=== PATIENT | male | born 1945 | race Caucasian/White ===

== ENCOUNTER 2018-11-06 14:09 | Inpatient (IN) ==
[2018-11-06] MEDS ORDERED: MoRPHine SULFATE 4 MG/ML 1 ML CARP\\VIAL IV PRN ×2 (16:33→20:38)
[2018-11-06] MEDS ORDERED: ONDANSETRON INJ 2 MG/ML 2 ML VIAL IV STA (16:33)
[2018-11-06] MEDS ORDERED: SODIUM CHLORIDE 0.9% 1000ML 1,000 ML IV SCH (16:45)
[2018-11-06 16:58] LABS: Basophils # (auto) 0.01 K/uL (0-0.2); Basophils % (auto) 0.1 %; Hematocrit (blood only) 44.6 % (42-52); Hemoglobin 15.1 g/dL (14.0-18.0); Immature Granulocytes # (auto) 0.15 K/uL (0.00-0.02); Lymphocytes # (auto) 0.19 K/uL (1.2-3.4); Lymphocytes % (auto) 1.3 %; Mean Corpuscular Hgb Conc 33.9 g/dL (32-36); Mean Corpuscular Volume 92.7 fL (80-100); Mean Platelet Volume 9.5 fL (7.4-10.4); Monocytes # (auto) 0.58 K/uL (0.11-0.59); Monocytes % (auto) 3.9 %; Neutrophils % (auto) 93.7 %; Platelet Count 197 K/uL (130-400); RDW Coefficient of Variation 13.2 % (11.5-14.5); RDW Standard Deviation 45.4 fL (36.4-46.3); Red Blood Count 4.81 M/uL (4.7-6.1); White Blood Count 14.93 K/uL (4.8-10.8)
--- NOTE | 2018-11-06 17:00 | XRay Report ---
XR chest 1V portable HISTORY: 73 years-old Male abd pain acute generalized abdominal pain with acute atypical chest pain COMPARISON: None available TECHNIQUE: Portable AP view of the chest FINDINGS: Cardiac silhouette is upper limits of normal in size. Mediastinal contours are within normal limits. There is no pneumothorax. Mild blunting of the costophrenic angles with mild right hemidiaphragm elev ation and subsegmental bibasilar opacities. Mild interstitial coarsening, likely on a chronic basis. Degenerative changes of the shoulders and spine. Convex right curvature about the midthoracic spine. IMPRESSION: 1. Left greater than right bibasilar opacities suggest atelectasis with pneumonitis considered less l ikely. 2. Mild right hemidiaphragmatic elevation. The above report was generated using voice recognition software. It may contain grammatical, syntax o r spelling errors. Electronically signed by: Terence David M.D. 11/06/2018 4:58 PM
[2018-11-06 17:06] LABS: iSTAT Hemoglobin 15.6 g/dl (14.0-18.0); iSTAT Ionized Calcium 1.18 mmol/l (1.12-1.32)
[2018-11-06 17:10] LABS: Prothrombin Time 10.3 Seconds (9.0-12.0)
--- NOTE | 2018-11-06 17:17 | Emergency Department Note ---
Entered by Jerry Allison acting as a scribe for Chris Tariq DO History of Present Illness General Chief complaint: Abdominal Pain Source: patient Limitations: no limitations History of Present Illness Provider complaint: Abd Pain Onset (ago): day(s) Location: abdomen Radiation: other (radiating around the abdomen) Pain Consistency: + constant Maximum Pain Intensity: 7 Associated symptoms: + shortness of breath and + other (No melena, no hematochezia); no chest pain Treatments prior to arrival: none The patient is a 73 year old male who presents to the Emergency Room with complaints of constant abdominal pain that began a "couple of days ago." The patient describes his pain as diffuse and migrating around his abdomen. He also complains of some "heavy breathing" but denies any chest pain. The patient has history of medical issues aside from two hernia repairs. Home Medications Home Medications Medication Instructions Recorded Confirmed Type acetaminophen [Tylenol Extra 1,000 mg PO UD PRN 11/06/18 11/06/18 History Strength] aspirin 81 mg PO QAM 11/06/18 11/06/18 History Allergies Allergy/AdvReac Type Severity Reaction Status Date / Time No Known Allergies Allergy Unverified 11/06/18 17:30 Past Med/Surg History Medical History BPH (benign prostatic hyperplasia) Hydrocele HLD (hyperlipidemia) History of actinic keratosis Hx of melanoma of skin History of basal cell carcinoma Surgical History History of colonoscopy with polypectomy History of lymph node biopsy History of tonsillectomy and adenoidectomy History of surgical removal of skin lesion History of hernia repair Family History Father , age 61 of [place] HTN (hypertension) CVA (cerebral vascular accident) Heart attack Social History Current Living Situation: Alone Other Information That Helps Us Care for You: No Feels Safe at Home: Yes Safety Concerns: Feels Safe At This Time Smoking Status: Never smoker Tobacco Type: smokeless tobacco Cigarettes per Day : 1/2 can per day Do You Dip or Chew Tobacco: Yes Hx Alcohol Use: No Hx Substance Use: No Beliefs That Will Affect Care: None Communication Ability: Effective Review of Systems See HPI for pertinent positives & negatives. and A total of 10 systems reviewed and were otherwise negative Physical Exam Vital Signs Vital Signs - 24 hr 11/06/18 14:30 11/06/18 16:15 11/06/18 16:31 Temperature 36.4 C L Temperature Source Oral Sepsis Recent Fever Within 48 Hours No Sepsis New/Unexplained Change in Mental Status No Sepsis Action Taken by Nursing No Action Required Pulse Rate 98 H 105 H Pulse Rate [Apical] 94 H Pulse Rhythm Pulse Rhythm [Apical] Pulse Strength [Apical] Respiratory Rate 18 18 32 H Respiratory Effort / Characteristics Non-Labored Spontaneous Respiratory Depth Normal Respiratory Pattern Regular Blood Pressure 105/69 102/91 Blood Pressure [Right Arm] 137/77 Blood Pressure Mean 81 94 Blood Pressure Mean [Right Arm] 97 Blood Pressure Position [Right Arm] Pulse Oximetry 98 94 97 Oxygen Delivery Method Room Air Room Air Oxygen Flow Rate 11/06/18 16:44 11/06/18 18:31 11/06/18 19:07 Temperature Temperature Source Sepsis Recent Fever Within 48 Hours Sepsis New/Unexplained Change in Mental Status Sepsis Action Taken by Nursing Pulse Rate 98 H 116 H 122 H Pulse Rate [Apical] Pulse Rhythm Regular Pulse Rhythm [Apical] Pulse Strength [Apical] Respiratory Rate 18 21 18 Respiratory Effort / Characteristics Respiratory Depth Respiratory Pattern Blood Pressure 109/84 96/85 L Blood Pressure [Right Arm] Blood Pressure Mean 92 88 Blood Pressure Mean [Right Arm] Blood Pressure Position [Right Arm] Pulse Oximetry 94 91 90 Oxygen Delivery Method Room Air Oxygen Flow Rate 11/06/18 19:31 11/06/18 20:15 11/06/18 20:30 Temperature 36.9 C Temperature Source Oral Sepsis Recent Fever Within 48 Hours Sepsis New/Unexplained Change in Mental Status Sepsis Action Taken by Nursing Pulse Rate 115 H 115 H Pulse Rate [Apical] 112 H Pulse Rhythm Pulse Rhythm [Apical] Regular Pulse Strength [Apical] Normal Respiratory Rate 21 21 20 Respiratory Effort / Characteristics Non-Labored Spontaneous Respiratory Depth Normal Respiratory Pattern Regular Blood Pressure 126/77 126/77 Blood Pressure [Right Arm] 127/74 Blood Pressure Mean 93 Blood Pressure Mean [Right Arm] 91 Blood Pressure Position [Right Arm] Lying Pulse Oximetry 91 91 95 Oxygen Delivery Method Room Air Room Air Oxygen Flow Rate 11/06/18 23:40 11/06/18 23:50 11/07/18 00:00 Temperature 37.2 C Temperature Source Temporal Artery Scan Temporal Artery Scan Sepsis Recent Fever Within 48 Hours Sepsis New/Unexplained Change in Mental Status Sepsis Action Taken by Nursing Pulse Rate Pulse Rate [Apical] 82 69 76 Pulse Rhythm Pulse Rhythm [Apical] Regular Regular Regular Pulse Strength [Apical] Respiratory Rate 18 19 16 Respiratory Effort / Characteristics Non-Labored Spontaneous Non-Labored Spontaneous Non-Labored Spontaneous Respiratory Depth Normal Normal Normal Respiratory Pattern Blood Pressure Blood Pressure [Right Arm] 134/80 117/71 142/98 H Blood Pressure Mean Blood Pressure Mean [Right Arm] 98 86 112 Blood Pressure Position [Right Arm] Semi-fowlers Semi-fowlers Semi-fowlers Pulse Oximetry 98 96 96 Oxygen Delivery Method Oxymask Oxymask Oxymask Oxygen Flow Rate 6 6 6 11/07/18 00:10 11/07/18 00:37 11/07/18 00:50 Temperature 37.1 C 36.5 C Temperature Source Temporal Artery Scan Oral Sepsis Recent Fever Within 48 Hours Sepsis New/Unexplained Change in Mental Status Sepsis Action Taken by Nursing Pulse Rate Pulse Rate [Apical] 76 77 76 Pulse Rhythm Pulse Rhythm [Apical] Regular Regular Regular Pulse Strength [Apical] Normal Normal Respiratory Rate 15 20 20 Respiratory Effort / Characteristics Non-Labored Spontaneous Non-Labored Spontaneous Non-Labored Spontaneous Respiratory Depth Normal Normal Normal Respiratory Pattern Regular Regular Blood Pressure Blood Pressure [Right Arm] 110/72 130/76 115/72 Blood Pressure Mean Blood Pressure Mean [Right Arm] 84 94 86 Blood Pressure Position [Right Arm] Semi-fowlers Lying Lying Pulse Oximetry 93 92 95 Oxygen Delivery Method Nasal Cannula Nasal Cannula Nasal Cannula Oxygen Flow Rate 2 2 2 11/07/18 01:25 11/07/18 01:40 11/07/18 02:11 Temperature Temperature Source Sepsis Recent Fever Within 48 Hours Sepsis New/Unexplained Change in Mental Status Sepsis Action Taken by Nursing Pulse Rate Pulse Rate [Apical] 74 75 75 Pulse Rhythm Pulse Rhythm [Apical] Regular Regular Regular Pulse Strength [Apical] Normal Normal Normal Respiratory Rate 18 20 16 Respiratory Effort / Characteristics Non-Labored Spontaneous Non-Labored Spontaneous Non-Labored Spontaneous Respiratory Depth Normal Normal Normal Respiratory Pattern Regular Blood Pressure Blood Pressure [Right Arm] 107/69 110/70 97/57 L Blood Pressure Mean Blood Pressure Mean [Right Arm] 81 83 70 Blood Pressure Position [Right Arm] Lying Lying Lying Pulse Oximetry 94 94 94 Oxygen Delivery Method Room Air Room Air Room Air Oxygen Flow Rate 11/07/18 02:40 11/07/18 03:10 11/07/18 04:10 Temperature 36.7 C Temperature Source Oral Sepsis Recent Fever Within 48 Hours Sepsis New/Unexplained Change in Mental Status Sepsis Action Taken by Nursing Pulse Rate Pulse Rate [Apical] 71 87 60 Pulse Rhythm Pulse Rhythm [Apical] Regular Regular Regular Pulse Strength [Apical] Normal Normal Respiratory Rate 18 18 18 Respiratory Effort / Characteristics Non-Labored Spontaneous Non-Labored Spontaneous Non-Labored Spontaneous Respiratory Depth Normal Normal Normal Respiratory Pattern Regular Regular Regular Blood Pressure Blood Pressure [Right Arm] 97/63 L 101/62 89/53 L Blood Pressure Mean Blood Pressure Mean [Right Arm] 74 75 65 Blood Pressure Position [Right Arm] Lying Lying Lying Pulse Oximetry 92 92 94 Oxygen Delivery Method Room Air Room Air Oxygen Flow Rate 11/07/18 05:10 11/07/18 06:10 11/07/18 06:43 Temperature 36.4 C L Temperature Source Oral Sepsis Recent Fever Within 48 Hours Sepsis New/Unexplained Change in Mental Status Sepsis Action Taken by Nursing Pulse Rate Pulse Rate [Apical] 60 56 L 57 L Pulse Rhythm Pulse Rhythm [Apical] Regular Pulse Strength [Apical] Normal Respiratory Rate 20 18 16 Respiratory Effort / Characteristics Non-Labored Spontaneous Non-Labored Spontaneous Respiratory Depth Normal Normal Respiratory Pattern Regular Blood Pressure Blood Pressure [Right Arm] 98/64 L 94/57 L 110/70 Blood Pressure Mean Blood Pressure Mean [Right Arm] 75 69 83 Blood Pressure Position [Right Arm] Lying Lying Lying Pulse Oximetry 94 95 95 Oxygen Delivery Method Room Air Room Air Room Air Oxygen Flow Rate 11/07/18 07:01 11/07/18 10:46 Temperature 36.6 C 36.5 C Temperature Source Oral Oral Sepsis Recent Fever Within 48 Hours Sepsis New/Unexplained Change in Mental Status Sepsis Action Taken by Nursing Pulse Rate Pulse Rate [Apical] 68 67 Pulse Rhythm Pulse Rhythm [Apical] Pulse Strength [Apical] Respiratory Rate 18 18 Respiratory Effort / Characteristics Respiratory Depth Respiratory Pattern Blood Pressure Blood Pressure [Right Arm] 111/69 117/72 Blood Pressure Mean Blood Pressure Mean [Right Arm] 83 87 Blood Pressure Position [Right Arm] Lying Lying Pulse Oximetry 95 95 Oxygen Delivery Method Room Air Room Air Oxygen Flow Rate GENERAL: Patient is frail and cachectic appearing. He appears anxious and uncomfortable. EYES: The conjunctivae are clear. The pupils are round and reactive. EARS, NOSE, MOUTH AND THROAT: The nose is without any evidence of any deformity. Mucous membranes are moist tongue is midline NECK: The neck is nontender and supple. RESPIRATORY: Normal respiratory effort is noted there is no evidence of wheezing rhonchi or rales CARDIOVASCULAR: Regular rate and rhythm noted there no murmurs rubs or gallops normal S1 normal S2 GASTROINTESTINAL: The abdomen is nondistended but diffusely tender. There is diffuse guarding noted to palpation. MUSCULOSKELETAL/EXTREMITIES: There is no evidence of gross deformity full range of motion is noted in the hips and shoulders SKIN: There is no obvious evidence of any rash. No pedal edema was noted NEUROLOGIC: Patient is awake alert and oriented x3. Course 1628: Past medical records reviewed. The patient was evaluated in room B4A, and a complete history and physical examination were performed. 1827: I reviewed the patient's case with Lupe Rowland Lenin SKAGGS. She will evaluate the patient for further management. 1836: I reviewed the patient's case with Dr. Daniel LEE. He would like me to order a MRCP and admit to medicine. Consultations Consultation #1: 1827: I reviewed the patient's case with Lupe Rowland Lenin SKAGGS. She will evaluate the patient for further management. Administered Medications Piperacillin Sod/Tazobactam (Sod 3.375 gm/ Dextrose) 115 mls @ 28.75 mls/hr IV [facility]; Protocol Stop: 11/17/18 00:00 Last Infusion: 11/07/18 12:56 Dose: 0 mls/hr Admin: 11/07/18 08:09 Dose: 28.8 mls/hr Infusion: 11/07/18 04:52 Dose: 0 mls/hr Admin: 11/07/18 00:45 Dose: 28.8 mls/hr Discontinued Medications Sodium Chloride (Nss 1000ml) 1,000 mls @ 999 mls/hr IV .Q1H1M RANDA Stop: 11/06/18 17:45 Last Infusion: 11/06/18 18:05 Dose: 0 mls/hr Admin: 11/06/18 17:03 Dose: 999 mls/hr Piperacillin Sod/Tazobactam Sod (Zosyn) 4.5 gm in 120 mls @ 240 mls/hr IV NOW ONE Stop: 11/06/18 18:57 Last Infusion: 11/06/18 20:25 Dose: 0 mls/hr Admin: 11/06/18 19:31 Dose: 240 mls/hr Sodium Chloride (Nss) 500 mls @ 999 mls/hr IV .Q31M ONE Stop: 11/06/18 18:58 Last Infusion: 11/06/18 20:25 Dose: 0 mls/hr Admin: 11/06/18 19:32 Dose: 999 mls/hr Sodium Chloride (Nss 1000ml) 1,000 mls @ 999 mls/hr IV .Q1H1M ONE Stop: 11/06/18 21:45 Last Admin: 11/06/18 21:03 Dose: Not Given Sodium Chloride (Nss 1000ml) 1,000 mls @ 125 mls/hr IV .Q8H RANDA Stop: 11/07/18 13:44 Last Admin: 11/07/18 08:09 Dose: 125 mls/hr Infusion: 11/07/18 08:09 Dose: 125 mls/hr Admin: 11/07/18 00:45 Dose: 125 mls/hr Indomethacin (Indocin) 100 mg IN NOW STA Stop: 11/06/18 20:32 Last Admin: 11/06/18 21:03 Dose: 100 mg Indomethacin (Indocin) Confirm Administered Dose 100 mg IN .STK-MED ONE Stop: 11/06/18 22:36 Last Admin: 11/06/18 23:10 Dose: 100 mg Ioversol (Optiray 320 100ml) 94 ml IV ONCE PRN PRN Reason: Interaction Checking Stop: 11/10/18 17:44 Last Admin: 11/06/18 17:45 Dose: 94 ml Morphine Sulfate (Morphine Sulfate) 4 mg IV Q15M PRN PRN Reason: Pain Stop: 11/20/18 16:32 Last Admin: 11/06/18 17:03 Dose: 4 mg Ondansetron HCl (Zofran) 4 mg IV NOW STA Stop: 11/06/18 16:34 Last Admin: 11/06/18 17:03 Dose: 4 mg Medical Decision Making Differential Diagnosis Differential diagnosis: Etiologies such as biliary colic, cholecystitis, hepatitis, pancreatitis, cardiac disease, pancreatitis, gastritis, peptic ulcer disease, appendicitis, cystitis, diverticulitis, mesenteric ischemia, inflammatory bowel disease, ileus , bowel obstruction, testicular torsion, aortic pathology, shingles, as well as others were considered. Medical Records Attestation: I reviewed the patient's medical records. Home Medications Current Medication List: was personally reviewed by me Laboratory Data Attestation: I reviewed the patient's lab results. Result diagrams: 11/07/18 07:12 11/07/18 07:12 Lab Results 11/06/18 11/06/18 11/06/18 Range/Units 16:44 16:44 16:44 WBC 14.93 H (4.8-10.8) K/uL RBC 4.81 (4.7-6.1) M/uL Hgb 15.1 (14.0-18.0) g/dL POC Hgb (14.0-18.0) g/dl Hct 44.6 (42-52) % POC Hct (42-52) % MCV 92.7 (80-100) fL MCH 31.4 (25-34) pg MCHC 33.9 (32-36) g/dL RDW Std Deviation 45.4 (36.4-46.3) fL RDW Coeff of Kevin 13.2 (11.5-14.5) % Plt Count 197 (130-400) K/uL MPV 9.5 (7.4-10.4) fL Immature Gran % (Auto) 1.0 % Neut % (Auto) 93.7 % Lymph % (Auto) 1.3 % [place] % (Auto) 3.9 % Eos % (Auto) 0.0 % Baso % (Auto) 0.1 % Immature Gran # (Auto) 0.15 H (0.00-0.02) K/uL Neut # (Auto) 14.00 H (1.4-6.5) K/uL Lymph # (Auto) 0.19 L (1.2-3.4) K/uL [place] # (Auto) 0.58 (0.11-0.59) K/uL Eos # (Auto) 0.00 (0-0.5) K/uL Baso # (Auto) 0.01 (0-0.2) K/uL Echinocytes PT 10.3 (9.0-12.0) Seconds INR 1.0 (0.9-1.1) POC Sodium (135-144) mEq/L Sodium 134 L (136-145) mmol/L POC Potassium (3.3-5.0) mEq/L Potassium 4.7 (3.5-5.1) mmol/L POC Chloride (101-112) mEq/L Chloride 100 (98-107) mmol/L Carbon Dioxide 22 (21-32) mmol/L POC Total CO2 (24-31) mEq/l Anion Gap 12.0 H (3-11) POC Anion Gap (16-25) mmol/L POC BUN (7-18) mg/dl BUN 30 H (7-18) mg/dl Creatinine 1.52 H (0.6-1.4) mg/dl POC Creatinine (0.6-1.3) mg/dl Est Cr Clr Drug Dosing 34.6 ml/min Est GFR ( Amer) 51.2 Est GFR (Non-Af Amer) 44.2 BUN/Creatinine Ratio 19.9 (10-20) Glucose 158 H (70-99) mg/dl POC Glucose (other) (70-99) mg/dl Estimat Average Glucose mg/dl Hemoglobin A1c (4.5-5.6) % Lactate (0.4-2.0) mmol/L Calcium 9.8 (8.5-10.1) mg/dl POC Ioniz Calcium Radha (1.12-1.32) mmol/l Total Bilirubin 4.0 H (0.2-1) mg/dl Direct Bilirubin (0-0.2) mg/dl AST 391 H (15-37) U/L ALT 266 H (12-78) U/L Alkaline Phosphatase 218 H (45-117) U/L Troponin I < 0.015 (0-0.045) ng/ml Total Protein 7.4 (6.4-8.2) gm/dl Albumin 3.7 (3.4-5.0) gm/dl Globulin 3.7 (2.5-4.0) gm/dl Albumin/Globulin Ratio 1.0 (0.9-2) Lipase 131 (73-393) U/L Urine Color Urine Appearance (Clear) Urine pH (4.5-7.5) Ur Specific [place] (1.000-1.030) Urine Protein (Negative) Urine Glucose (UA) (Negative) Urine Ketones (Negative) Urine Blood (Negative) Urine Nitrite (Negative) Urine Bilirubin (Negative) Urine Urobilinogen (Negative) Ur Leukocyte Esterase (Negative) 11/06/18 11/06/18 11/06/18 Range/Units 16:52 18:49 19:30 WBC (4.8-10.8) K/uL RBC (4.7-6.1) M/uL Hgb (14.0-18.0) g/dL POC Hgb 15.6 (14.0-18.0) g/dl Hct (42-52) % POC Hct 46 (42-52) % MCV (80-100) fL MCH (25-34) pg MCHC (32-36) g/dL RDW Std Deviation (36.4-46.3) fL RDW Coeff of Kevin (11.5-14.5) % Plt Count (130-400) K/uL MPV (7.4-10.4) fL Immature Gran % (Auto) % Neut % (Auto) % Lymph % (Auto) % [place] % (Auto) % Eos % (Auto) % Baso % (Auto) % Immature Gran # (Auto) (0.00-0.02) K/uL Neut # (Auto) (1.4-6.5) K/uL Lymph # (Auto) (1.2-3.4) K/uL [place] # (Auto) (0.11-0.59) K/uL Eos # (Auto) (0-0.5) K/uL Baso # (Auto) (0-0.2) K/uL Echinocytes PT (9.0-12.0) Seconds INR (0.9-1.1) POC Sodium 136 (135-144) mEq/L Sodium (136-145) mmol/L POC Potassium 4.9 (3.3-5.0) mEq/L Potassium (3.5-5.1) mmol/L POC Chloride 100 L (101-112) mEq/L Chloride (98-107) mmol/L Carbon Dioxide (21-32) mmol/L POC Total CO2 25 (24-31) mEq/l Anion Gap (3-11) POC Anion Gap 17.0 (16-25) mmol/L POC BUN 31 H (7-18) mg/dl BUN (7-18) mg/dl Creatinine (0.6-1.4) mg/dl POC Creatinine 1.2 (0.6-1.3) mg/dl Est Cr Clr Drug Dosing ml/min Est GFR ( Amer) Est GFR (Non-Af Amer) BUN/Creatinine Ratio (10-20) Glucose (70-99) mg/dl POC Glucose (other) 157 H (70-99) mg/dl Estimat Average Glucose mg/dl Hemoglobin A1c (4.5-5.6) % Lactate (0.4-2.0) mmol/L Calcium (8.5-10.1) mg/dl POC Ioniz Calcium Radha 1.18 (1.12-1.32) mmol/l Total Bilirubin (0.2-1) mg/dl Direct Bilirubin 3.0 H (0-0.2) mg/dl AST (15-37) U/L ALT (12-78) U/L Alkaline Phosphatase (45-117) U/L Troponin I (0-0.045) ng/ml Total Protein (6.4-8.2) gm/dl Albumin (3.4-5.0) gm/dl Globulin (2.5-4.0) gm/dl Albumin/Globulin Ratio (0.9-2) Lipase (73-393) U/L Urine Color Dark Yellow Urine Appearance Clear (Clear) Urine pH 5.0 (4.5-7.5) Ur Specific [place] > 1.045 H (1.000-1.030) Urine Protein Negative (Negative) Urine Glucose (UA) Negative (Negative) Urine Ketones Trace H (Negative) Urine Blood Negative (Negative) Urine Nitrite Negative (Negative) Urine Bilirubin Negative (Negative) Urine Urobilinogen Negative (Negative) Ur Leukocyte Esterase Negative (Negative) 11/07/18 11/07/18 11/07/18 Range/Units 07:12 07:12 07:12 WBC 14.24 H (4.8-10.8) K/uL RBC 4.08 L (4.7-6.1) M/uL Hgb 12.6 L (14.0-18.0) g/dL POC Hgb (14.0-18.0) g/dl Hct 37.3 L (42-52) % POC Hct (42-52) % MCV 91.4 (80-100) fL MCH 30.9 (25-34) pg MCHC 33.8 (32-36) g/dL RDW Std Deviation 45.2 (36.4-46.3) fL RDW Coeff of Kevin 13.5 (11.5-14.5) % Plt Count 148 (130-400) K/uL MPV 9.4 (7.4-10.4) fL Immature Gran % (Auto) 0.2 % Neut % (Auto) 93.0 % Lymph % (Auto) 4.8 % [place] % (Auto) 2.0 % Eos % (Auto) 0.0 % Baso % (Auto) 0.0 % Immature Gran # (Auto) 0.03 H (0.00-0.02) K/uL Neut # (Auto) 13.24 H (1.4-6.5) K/uL Lymph # (Auto) 0.69 L (1.2-3.4) K/uL [place] # (Auto) 0.28 (0.11-0.59) K/uL Eos # (Auto) 0.00 (0-0.5) K/uL Baso # (Auto) 0.00 (0-0.2) K/uL Echinocytes 1+ PT (9.0-12.0) Seconds INR (0.9-1.1) POC Sodium (135-144) mEq/L Sodium 137 (136-145) mmol/L POC Potassium (3.3-5.0) mEq/L Potassium 4.7 (3.5-5.1) mmol/L POC Chloride (101-112) mEq/L Chloride 107 (98-107) mmol/L Carbon Dioxide 20 L (21-32) mmol/L POC Total CO2 (24-31) mEq/l Anion Gap 10.0 (3-11) POC Anion Gap (16-25) mmol/L POC BUN (7-18) mg/dl BUN 26 H (7-18) mg/dl Creatinine 1.52 H (0.6-1.4) mg/dl POC Creatinine (0.6-1.3) mg/dl Est Cr Clr Drug Dosing 34.5 ml/min Est GFR ( Amer) 51.2 Est GFR (Non-Af Amer) 44.2 BUN/Creatinine Ratio 17.3 (10-20) Glucose 146 H (70-99) mg/dl POC Glucose (other) (70-99) mg/dl Estimat Average Glucose mg/dl Hemoglobin A1c (4.5-5.6) % Lactate 2.1 H* (0.4-2.0) mmol/L Calcium 8.0 L D (8.5-10.1) mg/dl POC Ioniz Calcium Radha (1.12-1.32) mmol/l Total Bilirubin 3.3 H (0.2-1) mg/dl Direct Bilirubin (0-0.2) mg/dl AST 170 H (15-37) U/L ALT 178 H (12-78) U/L Alkaline Phosphatase 146 H (45-117) U/L Troponin I (0-0.045) ng/ml Total Protein 5.8 L D (6.4-8.2) gm/dl Albumin 2.6 L (3.4-5.0) gm/dl Globulin 3.2 (2.5-4.0) gm/dl Albumin/Globulin Ratio 0.8 L (0.9-2) Lipase (73-393) U/L Urine Color Urine Appearance (Clear) Urine pH (4.5-7.5) Ur Specific [place] (1.000-1.030) Urine Protein (Negative) Urine Glucose (UA) (Negative) Urine Ketones (Negative) Urine Blood (Negative) Urine Nitrite (Negative) Urine Bilirubin (Negative) Urine Urobilinogen (Negative) Ur Leukocyte Esterase (Negative) 11/07/18 Range/Units 07:12 WBC (4.8-10.8) K/uL RBC (4.7-6.1) M/uL Hgb (14.0-18.0) g/dL POC Hgb (14.0-18.0) g/dl Hct (42-52) % POC Hct (42-52) % MCV (80-100) fL MCH (25-34) pg MCHC (32-36) g/dL RDW Std Deviation (36.4-46.3) fL RDW Coeff of Kevin (11.5-14.5) % Plt Count (130-400) K/uL MPV (7.4-10.4) fL Immature Gran % (Auto) % Neut % (Auto) % Lymph % (Auto) % [place] % (Auto) % Eos % (Auto) % Baso % (Auto) % Immature Gran # (Auto) (0.00-0.02) K/uL Neut # (Auto) (1.4-6.5) K/uL Lymph # (Auto) (1.2-3.4) K/uL [place] # (Auto) (0.11-0.59) K/uL Eos # (Auto) (0-0.5) K/uL Baso # (Auto) (0-0.2) K/uL Echinocytes PT (9.0-12.0) Seconds INR (0.9-1.1) POC Sodium (135-144) mEq/L Sodium (136-145) mmol/L POC Potassium (3.3-5.0) mEq/L Potassium (3.5-5.1) mmol/L POC Chloride (101-112) mEq/L Chloride (98-107) mmol/L Carbon Dioxide (21-32) mmol/L POC Total CO2 (24-31) mEq/l Anion Gap (3-11) POC Anion Gap (16-25) mmol/L POC BUN (7-18) mg/dl BUN (7-18) mg/dl Creatinine (0.6-1.4) mg/dl POC Creatinine (0.6-1.3) mg/dl Est Cr Clr Drug Dosing ml/min Est GFR ( Amer) Est GFR (Non-Af Amer) BUN/Creatinine Ratio (10-20) Glucose (70-99) mg/dl POC Glucose (other) (70-99) mg/dl Estimat Average Glucose 123 mg/dl Hemoglobin A1c 5.9 H (4.5-5.6) % Lactate (0.4-2.0) mmol/L Calcium (8.5-10.1) mg/dl POC Ioniz Calcium Radha (1.12-1.32) mmol/l Total Bilirubin (0.2-1) mg/dl Direct Bilirubin (0-0.2) mg/dl AST (15-37) U/L ALT (12-78) U/L Alkaline Phosphatase (45-117) U/L Troponin I (0-0.045) ng/ml Total Protein (6.4-8.2) gm/dl Albumin (3.4-5.0) gm/dl Globulin (2.5-4.0) gm/dl Albumin/Globulin Ratio (0.9-2) Lipase (73-393) U/L Urine Color Urine Appearance (Clear) Urine pH (4.5-7.5) Ur Specific [place] (1.000-1.030) Urine Protein (Negative) Urine Glucose (UA) (Negative) Urine Ketones (Negative) Urine Blood (Negative) Urine Nitrite (Negative) Urine Bilirubin (Negative) Urine Urobilinogen (Negative) Ur Leukocyte Esterase (Negative) Imaging Data Attestation: I personally reviewed and interpreted this imaging study as follows : Radiologist's Impression: XR chest 1V portable HISTORY: 73 years-old Male abd pain acute generalized abdominal pain with acute atypical chest pain COMPARISON: None available TECHNIQUE: Portable AP view of the chest FINDINGS: Cardiac silhouette is upper limits of normal in size. Mediastinal contours are within normal limits. There is no pneumothorax. Mild blunting of the costophrenic angles with mild right hemidiaphragm elevation and subsegmental bibasilar opacities. Mild interstitial coarsening, likely on a chronic basis. Degenerative changes of the shoulders and spine. Convex right curvature about the midthoracic spine. IMPRESSION: 1. Left greater than right bibasilar opacities suggest atelectasis with pneumonitis considered less likely. 2. Mild right hemidiaphragmatic elevation. The above report was generated using voice recognition software. It may contain grammatical, syntax or spelling errors. Electronically signed by: Terence David M.D. 11/06/2018 4:[address] abd pelvis IV con only CLINICAL HISTORY: 73 years-old Male presenting with pain. TECHNIQUE: Multidetector CT of the abdomen and pelvis was performed after the administration of intravenous contrast. IV contrast: 94 mL of Optiray 328. A dose lowering technique was used consistent with the principles of ALARA (as low as reasonably achievable). COMPARISON: None. CT DOSE (mGy.cm): The estimated cumulative dose is 280.44 mGy.cm. FINDINGS: [employer] topogram: Unremarkable. Lung bases: Scattered calcified mediastinal and bilateral hilar lymph nodes with calcified granulomata evidence of prior granulomatous infection. Bibasilar jugular and groundglass opacities possibly scarring related to chronic aspiration and/or atelectasis. Limited emphysematous change. Mild multichamber enlargement of the heart. Coronary artery and aortic valve calcification. No pericardial or pleural effusion. Liver: Normal morphology. No liver lesion. Patent hepatic vasculature. Biliary: Moderate to severe diffuse intrahepatic biliary ductal dilatation as well as moderate extrahepatic biliary duct dilatation. The cystic duct remnant may also be dilated. There is ductal dilatation to the ampulla of Vater. Gallbladder surgically absent. Pancreas: Normal. Spleen: Normal. Adrenal glands: Normal. Kidneys and ureters: Several well-defined hypodensities in the kidneys likely simple cysts. No hydronephrosis or nephrolithiasis. Motion artifact grades evaluation of the kidneys. Ureters nondistended. Bladder: Circumferential bladder wall thickening. Pelvic organs: Prostate enlargement likely secondary to benign prostatic hyperplasia. Bowel: Diverticulosis of the sigmoid colon without wall thickening or pericolonic inflammatory change. Minimal involvement of the descending colon. The appendix is normal. No bowel obstruction. Peritoneal cavity: No free fluid or intraperitoneal gas. Lymph nodes: No enlarged lymph nodes in the abdomen or pelvis. Vasculature: Atherosclerosis of the normal caliber abdominal aorta. IVC patent. Abdominal wall: Diastasis of the rectus abdominis. Musculoskeletal: Osteopenia. IMPRESSION: 1. Moderate to severe diffuse intrahepatic and extrahepatic biliary ductal dilatation without evidence of a radiopaque obstructing calculus or gross evidence of a pancreatic head mass. Findings may suggest a benign stricture at the ampulla of Vater or radiolucent common bile duct calculus among other etiologies. Consider MRCP for further evaluation. 2. Chronic bladder obstruction due to prostatomegaly. 3. Findings may suggest chronic aspiration or extensive atelectasis at the lung bases. Electronically signed by: Myles Marie M.D. 11/06/2018 6:06 PM ECG Data Attestation: I personally reviewed and interpreted this ECG as follows: Indication: abdominal pain Rate (beats per minute): 87 Rhythm: sinus rhythm Findings: + PVC; no ST depression and no ST elevation Comparison ECG Date: no prior available Blood Pressure Blood Pressure Findings: Elevated blood pressure Blood Pressure Disposition: further management by hospitalist LEXUS Marquis The patient is a 73-year-old male who presented to the emergency department for an evaluation of right-sided abdominal pain. The patient had a very significant abdominal exam. He was found to have high white blood cell count. I discussed the patient's laboratory and radiographic studies with him. He was treated with IV fluids IV pain medicine and IV antibiotics. At this time this does appear to represent some degree of biliary obstruction. The patient states that he is not had his gallbladder removed although they were unable to visualize his gallbladder on CAT scan. I discussed the patient's laboratory and radiographic studies with him. I also discussed his case with the on-call [facility] hospitalist group as well as the in home caregiver. They recommended an MRCP for further evaluation. The patient was reevaluated multiple times. Impression & Plan Pain, abdominal, RUQ, Elevated LFTs, Hyperbilirubinemia Discharge Plan Visit Data *Final* Discharge Date/Time: 11/06/18 20:15 Chief Complaint: Abdominal Pain ED Provider: Chris Tariq Discharge Problem: Pain, abdominal, RUQ, Elevated LFTs, Hyperbilirubinemia Patient Disposition: Admitted As Inpatient Discharge Instructions Interventions: ED Discharge Assessment Last Done: 11/06/18 20:15 The scribe's documentation has been prepared under my direction and personally reviewed by me in its entirety. I confirm that the note above accurately reflects all work, treatment, procedures, and medical decision making performed by me.
[2018-11-06 17:22] LABS: Alanine Aminotransferase 266 U/L (12-78); Albumin Level 3.7 gm/dl (3.4-5.0); Aspartate Aminotransferase 391 U/L (15-37); BUN Creatinine Ratio 19.9 (10-20); Blood Urea Nitrogen 30 mg/dl (7-18); Calcium 9.8 mg/dl (8.5-10.1); Carbon Dioxide 22 mmol/L (21-32); Chloride 100 mmol/L (98-107); Creatinine Clr Calc Pharmacy 34.6 ml/min; Est GFR (African American) 51.2; Est GFR (Non-African American) 44.2; Glucose 158 mg/dl (70-99); Potassium 4.7 mmol/L (3.5-5.1); Sodium 134 mmol/L (136-145)
[2018-11-06 17:27] LABS: Alkaline Phosphatase 218 U/L (45-117); Globulin 3.7 gm/dl (2.5-4.0); Total Protein 7.4 gm/dl (6.4-8.2); Troponin I < 0.015 ng/ml (0-0.045)
[2018-11-06] MEDS ORDERED: IOVERSOL 100ml IV PRN (17:45)
--- NOTE | 2018-11-06 18:07 | CT Scan Report ---
CT abd pelvis IV con only CLINICAL HISTORY: 73 years-old Male presenting with pain. TECHNIQUE: Multidetector CT of the abdomen and pelvis was performed after the administration of intra venous contrast. IV contrast: 94 mL of Optiray 328. A dose lowering technique was used consistent wit h the principles of ALARA (as low as reasonably achievable). COMPARISON: None. CT DOSE (mGy.cm): The estimated cumulative dose is 280.44 mGy.cm. FINDINGS: Day Worker topogram: Unremarkable. Lung bases: Scattered calcified mediastinal and bilateral hilar lymph nodes with calcified granulomat a evidence of prior granulomatous infection. Bibasilar jugular and groundglass opacities possibly sca rring related to chronic aspiration and/or atelectasis. Limited emphysematous change. Mild multichamb er enlargement of the heart. Coronary artery and aortic valve calcification. No pericardial or pleura l effusion. Liver: Normal morphology. No liver lesion. Patent hepatic vasculature. Biliary: Moderate to severe diffuse intrahepatic biliary ductal dilatation as well as moderate extrah epatic biliary duct dilatation. The cystic duct remnant may also be dilated. There is ductal dilatati on to the ampulla of Vater. Gallbladder surgically absent. Pancreas: Normal. Spleen: Normal. Adrenal glands: Normal. Kidneys and ureters: Several well-defined hypodensities in the kidneys likely simple cysts. No hydron ephrosis or nephrolithiasis. Motion artifact grades evaluation of the kidneys. Ureters nondistended. Bladder: Circumferential bladder wall thickening. Pelvic organs: Prostate enlargement likely secondary to benign prostatic hyperplasia. Bowel: Diverticulosis of the sigmoid colon without wall thickening or pericolonic inflammatory change . Minimal involvement of the descending colon. The appendix is normal. No bowel obstruction. Peritoneal cavity: No free fluid or intraperitoneal gas. Lymph nodes: No enlarged lymph nodes in the abdomen or pelvis. Vasculature: Atherosclerosis of the normal caliber abdominal aorta. IVC patent. Abdominal wall: Diastasis of the rectus abdominis. Musculoskeletal: Osteopenia. IMPRESSION: 1. Moderate to severe diffuse intrahepatic and extrahepatic biliary ductal dilatation without eviden ce of a radiopaque obstructing calculus or gross evidence of a pancreatic head mass. Findings may sug gest a benign stricture at the ampulla of Vater or radiolucent common bile duct calculus among other etiologies. Consider MRCP for further evaluation. 2. Chronic bladder obstruction due to prostatomegaly. 3. Findings may suggest chronic aspiration or extensive atelectasis at the lung bases. Electronically signed by: Myles Marie M.D. 11/06/2018 6:06 PM
[2018-11-06] MEDS ORDERED: SODIUM CHLORIDE 0.9% 500 ML IV ONE (18:28)
[2018-11-06] MEDS ORDERED: PIPERACILL/TAZOBAC CONSULT ACTIVE PRN ×2 (18:28→20:38)
[2018-11-06] MEDS ORDERED: PIPERACILLIN/TAZOBACTAM 4.5 GM/120 ML BAG IV ONE (18:28)
[2018-11-06 19:42] LABS: Appearance Urine Clear (Clear); Color Urine Dark Yellow; Glucose Urine UA Negative (Negative); Ketones Urine Trace (Negative); Leukocyte Esterase Urine Negative (Negative); Nitrite Urine Negative (Negative); Protein Urine Negative (Negative); Specific Gravity Urine > 1.045 (1.000-1.030); Urobilinogen Urine Negative (Negative)
--- NOTE | 2018-11-06 20:11 | History & Physical Report ---
Addendum entered and electronically signed by Lupe Alonso PA-C 22:07: Addendum (Blank) Addendum November 06, 2018 22:06 Updated Physical Exam: Gen: Thin, fraile, M, appears older than stated age, sitting up in bed, conversing easily NAD Head: Normocephalic, Atraumatic, mild temporal wasting Eyes: Sclera normal, no conjunctival injection, PERRLA, EOMI ENT: Gross hearing intact, normal pharynx, mucous membranes moist Neck: supple, no adenopathy, No JVD, no bruit, Resp: Clear to auscultation b/l, no wheeze, rales, rhonchi. Normal insp/exp effort, no accessory muscle use CV: Regular rate, regular rhythm, 1/6 FAYE noted at cardiac base, no rub, gallop , or ectopy Abd: +BS x 4, soft, nontender, nondistended Musculoskeletal: moves extremities active rom x 4, strength intact, good head loader strength Extremities: No edema bilaterally Skin: warm, moist, no rash, mild turgor, cap refill < 2sec Neuro: Alert and oriented x 3, speech normal, good mood/affect, cran nerve 2-12 intact grossly : deferred Original Note: Date of Service November 06, 2018 Assessment & Plan (1) Abdominal pain: This is a 73 year old male without significant PMH other than stated below who presents to [facility] ED secondary to abdominal pain x 2 days. In ED patient noted to have significant elevation of LFTs, T bili 4.0, direct bili 3.0, AST 391, ALT 266, ALK Phos 218, lipase unremarkable, leucocytosis 14.9k, bun 30, Cr 1.52. CT/Abd pelvis and MRCP noted. During my examination patient was noted to be tachycardic with SBP < 100. Prior vital signs noted hemodynamic stability. Signs of Sepsis now present per CMS guidelines, with Tachycardia HR 120s, SBP < 100, WBC 14.9k Lactic Acid 1.0 Patient received 1.5L IVF Blood cultures obtained Patient received dose of IV zosyn while in ED Dx likely secondary to Acute Cholangitis secondary to choledocoholithasis; but r /o stricture, pancreatic or biliary malignancy, hepatitis and other etiologies -admit to telemetry -Discussed case with donor relations manager Dr. Sanchez, MRCP just completed, ERCP to be completed this evening -NPO -IV Zosyn dosed per pharmacy -pain control IV morphine 2mg q2hr prn -given tacyhcardia and hypotension will give additional IVF bolus 1 L x 1 now and then run IVF 125cc/hr x 2 liters -CBC, CMP in a.m. (2) Sepsis: -plan as above (3) Elevated LFTs: -plan as above (4) Hyperbilirubinemia: -plan as above (5) JAMIL (acute kidney injury): -prior baseline Cr 1.2 -Bun 30, Cr 1.52 -IVF Resuscitation -repeat renal function in a.m. 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 Troncoso upon discharge Patient was seen and examined with Dr. Duarte, please see addendum Starting 11/07/18 patient will be followed by Dr. Mehta History of Present Illness Chief Complaint: Abdominal pain x 2 days. Primary Care Provider: Eduarda Kebede This is a 73 year old male without significant PMH other than stated below who presents to [facility] ED secondary to abdominal pain x 2 days. Son is at bedside. Pain located RLQ, nonradiating, constant, was 9/10, currently 0/10 after morphine, nothing makes better or worse, poor appetite, associated with emesis x 5 today and nausea. Never had anything like in past. Tried APAP with out relief. Hx of hernia repair in past; otherwise no abdominal surgeries per pt history. Denies f/c/s, lightheaded, dizziness, syncope, chest pain, sob, diarrhea, dysuria, hematuria, hemetemesis, hemoptysis, URI sx, melena, hematochezia. He does illicit to difficulty taking a deep breath due to abdominal pain. Reports 10lb weight lost past 2-3 months due to poor appetite. States he walks anywhere from 2-5miles daily at 7:30am, "I just have to keep moving." Allergies Allergy/AdvReac Type Severity Reaction Status Date / Time No Known Allergies Allergy Unverified 11/06/18 17:30 Home Medications Home Medications Medication Instructions Recorded Confirmed Type acetaminophen [Tylenol Extra 1,000 mg PO UD PRN 11/06/18 11/06/18 History Strength] aspirin 81 mg PO QAM 11/06/18 11/06/18 History Past Med/Surg History Medical History BPH (benign prostatic hyperplasia) Hydrocele HLD (hyperlipidemia) History of actinic keratosis Hx of melanoma of skin History of basal cell carcinoma Surgical History History of colonoscopy with polypectomy History of lymph node biopsy History of tonsillectomy and adenoidectomy History of surgical removal of skin lesion History of hernia repair Family History Father , age 61 of [place] HTN (hypertension) CVA (cerebral vascular accident) Heart attack Social History Current Living Situation: Alone Other Information That Helps Us Care for You: No Feels Safe at Home: Yes Safety Concerns: Feels Safe At This Time Smoking Status: Never smoker Tobacco Type: smokeless tobacco Cigarettes per Day : 1/2 can per day Do You Dip or Chew Tobacco: Yes Hx Alcohol Use: No Hx Substance Use: No Beliefs That Will Affect Care: None Preferred Language: Moldovan Communication Ability: Effective Grinder Needle Tip Required: No Review of Systems All systems reviewed & are unremarkable except as noted in HPI & below Physical Exam 2 Vital Signs (Past 24 Hours): Last Vital Signs Temp 36.4 C L 11/06/18 14:30 Pulse 115 H 11/06/18 19:31 Resp 21 11/06/18 19:31 BP 126/77 11/06/18 19:31 Pulse Ox 91 11/06/18 19:31 Physical Exam: Gen: WD/WN, M/F, NAD, sitting up in bed, pleasant, conversing easily Head: Normocephalic, Atraumatic Eyes: Sclera normal, no conjunctival injection, PERRLA, EOMI ENT: Gross hearing intact, normal pharynx, mucous membranes moist Neck: supple, no adenopathy, No JVD, no bruit, Resp: Clear to auscultation b/l, no wheeze, rales, rhonchi. Normal insp/exp effort, no accessory muscle use CV: Regular rate, regular rhythm, no murmur, rub, gallop, or ectopy Abd: +BS x 4, soft, nontender, nondistended Musculoskeletal: moves extremities active rom x 4, strength intact, good head loader strength Extremities: No edema bilaterally Skin: warm, moist, no rash, negative turgor, cap refill < 2sec Neuro: Alert and oriented x 3, speech normal, good mood/affect, cran nerve 2-12 intact grossly : deferred Results & Data Laboratory Results Short CBC 11/06/18 Range/Units 16:44 WBC 14.93 H (4.8-10.8) K/uL Hgb 15.1 (14.0-18.0) g/dL Hct 44.6 (42-52) % Plt Count 197 (130-400) K/uL BMP 11/06/18 16:44 Sodium 134 L Potassium 4.7 Chloride 100 Carbon Dioxide 22 BUN 30 H Creatinine 1.52 H Glucose 158 H Calcium 9.8 Cardiac Enzymes 11/06/18 Range/Units 16:44 Troponin I < 0.015 (0-0.045) ng/ml Liver Function 11/06/18 11/06/18 Range/Units 16:44 18:49 Total Bilirubin 4.0 H (0.2-1) mg/dl Direct Bilirubin 3.0 H (0-0.2) mg/dl AST 391 H (15-37) U/L ALT 266 H (12-78) U/L Alkaline Phosphatase 218 H (45-117) U/L Albumin 3.7 (3.4-5.0) gm/dl Diagnostic Findings CXR: IMPRESSION: 1. Left greater than right bibasilar opacities suggest atelectasis with pneumonitis considered less likely. 2. Mild right hemidiaphragmatic elevation. CT Abd/Pelvis: IMPRESSION: 1. Moderate to severe diffuse intrahepatic and extrahepatic biliary ductal dilatation without evidence of a radiopaque obstructing calculus or gross evidence of a pancreatic head mass. Findings may suggest a benign stricture at the ampulla of Vater or radiolucent common bile duct calculus among other etiologies. Consider MRCP for further evaluation. 2. Chronic bladder obstruction due to prostatomegaly. 3. Findings may suggest chronic aspiration or extensive atelectasis at the lung bases. MRCP: IMPRESSION: 1. Extensive choledocholithiasis with an impacted 9 mm common bile duct calculus in the distal common bile duct resulting in moderate to severe intrahepatic and extra hepatic biliary ductal dilatation. A gallbladder is not visualized though the patient denies prior cholecystectomy. ECG Rate (beats per minute): 87 Rhythm: normal sinus Findings: + PVC Additional Comments: QTC 442ms Code Status & VTE Plan Code Status Full Code VTE Prophylaxis Plan VTE Prophylaxis will be ordered: Yes Reason for no VTE drug order: Contraindicated (currently as patient going to undero ERCP this evening) Supervising Physician Co-Signing Physician Notes Patient is a 73 yr male who presents with constant RLQ abdominal pain, nausea, vomiting, poor appetite since 2 days duration. Also reports weight loss of about 10 pounds in 2 months duration. His WBC elevated at 14.93K, Cr:1.52, elevated glucose, Transaminitis suggestive of Obstructive Jaundice. CT abd showed Moderate to severe diffuse intrahepatic and extrahepatic biliary ductal dilatation with no evidence of calculus/Mass. On Exam patient is chronic ill appearing, thin, no distress, NC/AT, Lungs decreased breath sounds, CTA, S1, S2 , +sinus Tachycardia, Abd: soft, non tender, non distended, AAOX3, grossly no focal deficits, No pedal edema. GI was consulted and Patient underwent MRCP suggestive of extensive choledocholithiasis with an impacted 9 mm common bile duct calculus in the distal common bile duct. Patient is diagnosed to have Sepsis secondary to acute cholangitis due to choledocholithiasis. Patient is started on IV fluids, Abx, blood cultures obtained. Pain control. Patient is planned for ERCP later today. Keep him NPO. Check lactate levels, monitor in tele. Repeat EKG in AM. Also check for Hb A1C to r/o DM II. I personally reviewed the record. Patient is interviewed and examined at bedside. Patient's care is coordinated with Lupe Alonso PA-C. Please refer to the documentation above for details of patient's presentation and for discussion of other issues. _ (1) Sepsis Sepsis type: sepsis due to unspecified organism Qualified Code(s): A41.9 - Sepsis, unspecified organism (2) Abdominal pain Abdominal location: right lower quadrant Qualified Code(s): R10.31 - Right lower quadrant pain
--- NOTE | 2018-11-06 20:21 | Magnetic Resonance Report ---
MR MRCP CLINICAL HISTORY: 73 years-old Male presenting with ruq pain. TECHNIQUE: Multisequence, multiplanar MR imaging of the abdomen was performed without the use of intr avenous contrast. Dedicated MRCP protocol was utilized. 3-D volumetric and/or maximum intensity proje ction (MIP) images were subsequently reconstructed for review. IV contrast: None. COMPARISON: CT performed earlier today. FINDINGS: Localizer images: Unremarkable. Lung bases: Lung base clear. Normal heart size. No pericardial or pleural effusion. Liver: Normal morphology. Biliary: Moderate to severe diffuse intrahepatic and moderate extrahepatic biliary ductal dilatation. An impacted 9 mm calculus is evident in the distal common duct (series 3 image 8). A cystic duct rem nant is also dilated. There is significant choledocholithiasis in the neck of the cystic duct (series 5 image 70). No gallbladder is identifiable though the patient denies a history of cholecystectomy. Pancreas: Normal noncontrast appearance. Spleen: Normal noncontrast appearance. Adrenal glands: Normal noncontrast appearance. Kidneys and ureters: Normal noncontrast appearance. No hydronephrosis. Normal ureters. Bowel: Normal noncontrast appearance. No bowel obstruction. Peritoneal cavity: No free fluid. Lymph nodes: No gross lymphadenopathy allowing for noncontrast technique. Vasculature: Normal noncontrast appearance. Abdominal wall: Normal. Musculoskeletal: Degenerative changes of the spine. IMPRESSION: 1. Extensive choledocholithiasis with an impacted 9 mm common bile duct calculus in the distal commo n bile duct resulting in moderate to severe intrahepatic and extra hepatic biliary ductal dilatation. A gallbladder is not visualized though the patient denies prior cholecystectomy. Electronically signed by: Myles Marie M.D. 11/06/2018 8:18 PM
--- NOTE | 2018-11-06 20:27 | Gastrointestinal Consultation ---
Date of Consultation November 06, 2018 73 M patient with no medical comorbids presented to the hospital with abdominal pain, found to have leukocytosis, elevated bilirubin to >4 and sepsis. Imaging showed dilated intra and extrahepatic biliary tree hence Gi consulted. Feels little better now after hydration. Denies any nausea or vomiting, no fever or chills. No diarrhea or constipation. Supervising Physician Co-Signing Physician Notes Patient with acute cholangitis due to choledocholithiasis seen on MRCP. Plan for ERCP today. IV ABx and hydration. History of Present Illness Allergies Allergy/AdvReac Type Severity Reaction Status Date / Time No Known Allergies Allergy Unverified 11/06/18 17:30 Home Medications Home Medications Medication Instructions Recorded Confirmed Type acetaminophen [Tylenol Extra 1,000 mg PO UD PRN 11/06/18 11/06/18 History Strength] aspirin 81 mg PO QAM 11/06/18 11/06/18 History Patient History Medical History BPH (benign prostatic hyperplasia) Hydrocele HLD (hyperlipidemia) History of actinic keratosis Hx of melanoma of skin History of basal cell carcinoma Surgical History History of colonoscopy with polypectomy History of lymph node biopsy History of tonsillectomy and adenoidectomy History of surgical removal of skin lesion History of hernia repair Social History Current Living Situation: Alone Feels Safe at Home: Yes Smoking Status: Current every day smoker Tobacco Type: smokeless tobacco Cigarettes per Day: 1/2 can per day Hx Alcohol Use: No Hx Substance Use: No Preferred Language: Faroese Communication Ability: Effective Review of Systems Constitutional: no fever, no chills, no fatigue and no weight loss Eyes: no eye pain and no worsening vision Ear, Nose, Mouth, Throat: no tinnitus, no dizziness, no nasal discharge and no epistaxis Respiratory: no cough, no dyspnea, no dyspnea on exertion and no wheezing Cardiovascular: no chest pain, no orthopnea, no palpitations and no edema Gastrointestinal: as per Subjective / HPI Musculoskeletal: no stiffness and no myalgia Neurologic: no localized weakness, no paralysis, no tremor(s) and no headache(s) Endocrine: no polydipsia and no polyuria Hematologic / Lymphatic: no easy bleeding and no night sweats Physical Exam 2 Vital Signs (Past 24 Hours): Last Vital Signs Temp 36.4 C L 11/06/18 14:30 Pulse 115 H 11/06/18 20:15 Resp 21 11/06/18 20:15 BP 126/77 11/06/18 20:15 Pulse Ox 91 11/06/18 20:15 Constitutional: + well hydrated, cooperative and comfortable Eyes: PERRL, conjunctivae normal, anicteric sclerae ENMT: external ear and nose normal, oropharynx normal Neck: normal visual inspection and trachea midline Respiratory: normal respiratory effort, lungs clear to auscultation Auscultation: no wheezes Cardiovascular: RRR, no murmur, no edema Gastrointestinal (Abdomen): normal bowel sounds, soft, nontender, no hepatosplenomegaly Musculoskeletal: no cyanosis or clubbing, extremities motor strength 5/5 Skin: no rashes, warm and dry Neurologic: awake; no focal motor deficits Motor/Sensory: no tremor Results & Data Laboratory Results Laboratory Results - last 24 hr 11/06/18 11/06/18 11/06/18 16:44 16:44 16:44 WBC 14.93 H RBC 4.81 Hgb 15.1 POC Hgb Hct 44.6 POC Hct MCV 92.7 MCH 31.4 MCHC 33.9 RDW Std Deviation 45.4 RDW Coeff of Kevin 13.2 Plt Count 197 MPV 9.5 Immature Gran % (Auto) 1.0 Neut % (Auto) 93.7 Lymph % (Auto) 1.3 [place] % (Auto) 3.9 Eos % (Auto) 0.0 Baso % (Auto) 0.1 Immature Gran # (Auto) 0.15 H Neut # (Auto) 14.00 H Lymph # (Auto) 0.19 L [place] # (Auto) 0.58 Eos # (Auto) 0.00 Baso # (Auto) 0.01 PT 10.3 INR 1.0 POC Sodium Sodium 134 L POC Potassium Potassium 4.7 POC Chloride Chloride 100 Carbon Dioxide 22 POC Total CO2 Anion Gap 12.0 H POC Anion Gap POC BUN BUN 30 H Creatinine 1.52 H POC Creatinine Est Cr Clr Drug Dosing 34.6 Est GFR ( Amer) 51.2 Est GFR (Non-Af Amer) 44.2 BUN/Creatinine Ratio 19.9 Glucose 158 H POC Glucose (other) Calcium 9.8 POC Ioniz Calcium Radha Total Bilirubin 4.0 H Direct Bilirubin AST 391 H ALT 266 H Alkaline Phosphatase 218 H Troponin I < 0.015 Total Protein 7.4 Albumin 3.7 Globulin 3.7 Albumin/Globulin Ratio 1.0 Lipase 131 11/06/18 11/06/18 16:52 18:49 WBC RBC Hgb POC Hgb 15.6 Hct POC Hct 46 MCV MCH MCHC RDW Std Deviation RDW Coeff of Kevin Plt Count MPV Immature Gran % (Auto) Neut % (Auto) Lymph % (Auto) [place] % (Auto) Eos % (Auto) Baso % (Auto) Immature Gran # (Auto) Neut # (Auto) Lymph # (Auto) [place] # (Auto) Eos # (Auto) Baso # (Auto) PT INR POC Sodium 136 Sodium POC Potassium 4.9 Potassium POC Chloride 100 L Chloride Carbon Dioxide POC Total CO2 25 Anion Gap POC Anion Gap 17.0 POC BUN 31 H BUN Creatinine POC Creatinine 1.2 Est Cr Clr Drug Dosing Est GFR ( Amer) Est GFR (Non-Af Amer) BUN/Creatinine Ratio Glucose POC Glucose (other) 157 H Calcium POC Ioniz Calcium Radha 1.18 Total Bilirubin Direct Bilirubin 3.0 H AST ALT Alkaline Phosphatase Troponin I Total Protein Albumin Globulin Albumin/Globulin Ratio Lipase
[2018-11-06] MEDS ORDERED: INDOMETHACIN 50 MG SUPP PR STA (20:31)
[2018-11-06 20:32] LABS: Bilirubin Urine Negative (Negative); Ictotest Urine Negative (Negative)
[2018-11-06] MEDS ORDERED: POLYETHYLENE (MIRALAX) 17 GM PACK PO PRN (20:38)
[2018-11-06] MEDS ORDERED: MAGNESIUM HYDROXIDE SUSP 30 ML UDC PO PRN (20:38)
[2018-11-06] MEDS ORDERED: ONDANSETRON INJ 2 MG/ML 2 ML VIAL IV PRN (20:38)
[2018-11-06] MEDS ORDERED: ALUMINUM/MAGNESIUM SUSP 30 ML UDC PO PRN (20:38)
[2018-11-06] MEDS ORDERED: ACETAMINOPHEN 325 MG TAB PO PRN (20:38)
[2018-11-06] MEDS ORDERED: SODIUM CHLORIDE 0.9% 1000ML 1,000 ML IV ONE (20:45)
[2018-11-06] MEDS ORDERED: fentaNYL citrate 100 MCG/2 ML VIAL ONE (21:37)
[2018-11-06] MEDS ORDERED: PROPOFOL IV EMULSION 10 MG/ML 20 ML VIAL IV ONE (21:38)
--- NOTE | 2018-11-06 21:52 | Anesthesiology Consultation ---
Date of Service November 06, 2018 Assessment & Plan (1) Encounter for pre-operative examination: Chart Review Chart Review: Acceptable Risk for Surgery and Patient NOT seen in Pre Admission Testing Consults Requested none ASA [id number] Proposed Anesthesia Anesthesia Type: General Risk / Benefits Reviewed With: PT / POA / Parent / Guardian, Accepts Plan and Informed Consent Obtained NPO Date Last Intake of Fluids: 11/05/18 Time Last Intake of Fluids: 08:00 Date Last Intake of Solids: 11/05/18 Time Last Intake of Solids: 08:00 History Surgery Operation Date: 11/06/18 21:30 Proposed Procedures p Endoscopic Retrograde Cholangiopavee Muniz MD Operation Date: 11/07/18 07:30 Proposed Procedures p Endoscopic Tony Cholangifernando Muniz MD Height/Weight Height: 5 ft 9 in Weight: 58.1 kg Allergies Allergy/AdvReac Type Severity Reaction Status Date / Time No Known Allergies Allergy Unverified 11/06/18 17:30 Medications Home Medications Medication Instructions Recorded Confirmed Last Taken acetaminophen [Tylenol Extra 1,000 mg PO UD PRN 11/06/18 11/06/18 11/06/18 09:30 Strength] aspirin 81 mg PO QAM 11/06/18 11/06/18 11/05/18 Past Medical History Medical History BPH (benign prostatic hyperplasia) Hydrocele HLD (hyperlipidemia) History of actinic keratosis Hx of melanoma of skin History of basal cell carcinoma Past Family History Family History Father , age 61 of [place] HTN (hypertension) CVA (cerebral vascular accident) Heart attack Past Surgical History Surgical History History of colonoscopy with polypectomy History of lymph node biopsy History of tonsillectomy and adenoidectomy History of surgical removal of skin lesion History of hernia repair Social History Smoking Status: Never smoker tobacco type: smokeless tobacco Smoking cigarettes per day: 1/2 can per day Do You Dip or Chew Tobacco: Yes Hx Alcohol Use: No Hx Substance Use: No Review of Systems Respiratory: no cough, no chest congestion and no dyspnea Cardiovascular: no chest pain Physical Exam Vital Signs Last Vital Signs Temp 36.9 C 11/06/18 20:30 Pulse 112 H 11/06/18 20:30 Resp 20 11/06/18 20:30 BP 127/74 11/06/18 20:30 Pulse Ox 95 11/06/18 20:30 Testing Laboratory Results 11/06/18 16:44 11/06/18 16:44 PT 10.3 Seconds (9.0-12.0) 11/06/18 16:44 INR 1.0 (0.9-1.1) 11/06/18 16:44 Urine Color Dark Yellow 11/06/18 19:30 Urine Appearance Clear (Clear) 11/06/18 19:30 Urine pH 5.0 (4.5-7.5) 11/06/18 19:30 Ur Specific [place] > 1.045 (1.000-1.030) H 11/06/18 19:30 Urine Protein Negative (Negative) 11/06/18 19:30 Urine Glucose (UA) Negative (Negative) 11/06/18 19:30 Urine Ketones Trace (Negative) H 11/06/18 19:30 Urine Nitrite Negative (Negative) 11/06/18 19:30 Ur Leukocyte Esterase Negative (Negative) 11/06/18 19:30 11/06/18 16:52 POC Glucose (other) 157 H
[2018-11-06] MEDS ORDERED: fentaNYL citrate 100 MCG/2 ML VIAL IV PRN (21:55)
[2018-11-06] MEDS ORDERED: ATROPINE SULFATE 0.1 MG/ML 10ML SYR IV PRN (21:55)
[2018-11-06] MEDS ORDERED: ePHEDrine sulfate 50 MG/ML AMP IV PRN (21:55)
[2018-11-06] MEDS ORDERED: MIDAZOLAM HCL 1 MG/ML 2ML VIAL ONE (22:34)
[2018-11-06] MEDS ORDERED: INDOMETHACIN 50 MG SUPP PR ONE (22:35)
[2018-11-06] MEDS ORDERED: ROCURONIUM BROMIDE 10 MG/ML 5 ML VIAL ONE (23:12)
[2018-11-06] MEDS ORDERED: ONDANSETRON INJ 2 MG/ML 2 ML VIAL ONE (23:13)
[2018-11-06] MEDS ORDERED: NEOSTIGMINE METHYLSULFATE 5 MG/5 ML SYR ONE (23:13)
[2018-11-06] MEDS ORDERED: DEXAMETHASONE SOD INJ 4 MG/ML VIAL ONE (23:13)
[2018-11-06] MEDS ORDERED: GLYCOPYRROLATE 0.2 MG/ML VIAL ONE (23:13)
--- NOTE | 2018-11-06 23:20 | Operative Report ---
Post Operative Report Pre & Post Diagnosis Operation Date: 11/06/18 21:30 Pre-Op Diagnosis: Biliary Obstruction Post-Op Diagnosis: Biliary Obstruction Operation Date: 11/07/18 07:30 <No data on this case meets the specified criteria> Procedure Operation Date: 11/06/18 21:30 Actual Procedures p Endoscopic Retrograde Cholangiopancreatography(Not Applicable) - Graciela Muniz MD Operation Date: 11/07/18 07:30 <No data on this case meets the specified criteria> Surgeon Graciela Muniz MD Promotions Producer None Estimated Blood Loss 0 Findings See Below (CBD stone removed by sphincterotomy and balloon sweep, CBD stent placed) Specimens None Description of Procedure ERCP with sphincterotomy I attest to the content of the Intraoperative Record and any orders documented therein. Any exceptions are noted below.
--- NOTE | 2018-11-06 23:51 | GI REPORT ---
Patient Name: Dimitri Ron Procedure Date: 11/06/2018 9:06 PM Date of : 1945 Admit Type: Emergency Department Age: 73 Gender: Male Attending MD: Graciela Muniz MD Procedure: ERCP Providers: Graciela Muniz MD Referring MD: Chris Tariq, Giovanna Holcomb, Casey Sanchez MD Indications: Abnormal MRCP, For therapy of bile duct stone(s), For therapy of ascending cholangitis, Jaundice Medicines: General Anesthesia Complications: No immediate complications. Estimated Blood Loss: Estimated blood loss: none. Procedure: Pre-Anesthesia Assessment: - Prior to the procedure, a History and Physical was performed, and patient medications and allergies were reviewed. The patient is competent. The risks and benefits of the procedure and the sedation options and risks were discussed with the patient. All questions were answered and informed consent was obtained. Patient identification and proposed procedure were verified by the physician and the nurse in the procedure room. Mental Status Examination: alert and oriented. Airway Examination: normal oropharyngeal airway and neck mobility. Respiratory Examination: clear to auscultation. CV Examination: normal. ASA Grade Assessment: III - A patient with severe systemic disease. After reviewing the risks and benefits, the patient was deemed in satisfactory condition to undergo the procedure. The anesthesia plan was to use general anesthesia. Immediately prior to administration of medications, the patient was re-assessed for adequacy to receive sedatives. The heart rate, respiratory rate, oxygen saturations, blood pressure, adequacy of pulmonary ventilation, and response to care were monitored throughout the procedure. The physical status of the patient was re-assessed after the procedure. After obtaining informed consent, the scope was passed under direct vision. Throughout the procedure, the patient's blood pressure, pulse, and oxygen saturations were monitored continuously. The SCOPE was introduced through the mouth, and advanced to the duodenum and used to inject contrast into the bile duct. The ERCP was accomplished without difficulty. The patient tolerated the procedure well. Findings: The drum puller film was normal. The esophagus was successfully intubated under direct vision. The scope was advanced to a normal major papilla in the descending duodenum without detailed examination of the pharynx, larynx and associated structures, and upper GI tract. The upper GI tract was grossly normal. A 0.035 inch straight Acrobat wire was passed into the biliary tree from first attempt. The Fusion OMNI sphincterotome was passed over the guidewire and the bile duct was then deeply cannulated. Contrast was injected. I personally interpreted the bile duct images. Ductal flow of contrast was adequate. Image quality was adequate. Contrast extended to the main bile duct. The main bile duct was dilated, with a stone causing an obstruction. The largest diameter was 12 mm. A long and dilated cystic duct noted. The lower third of the main duct contained one stone, which was 10 mm in diameter. Biliary sphincterotomy was made with a monofilament Fusion OMNI sphincterotome using ERBE electrocautery. There was no post-sphincterotomy bleeding. The biliary tree was swept with a 12 mm balloon starting at the bifurcation multiple times. Sludge was swept from the duct. Many stones were removed. No stones remained. Pus was swept from the duct. One 10 Fr by 7 cm plastic stent with a single external flap and a single internal flap was placed into the common bile duct. Bile flowed through the stent. The stent was in good position. The total fluoroscopy exposure time was 1 minute and 32 seconds. Indomethacin 100 mg was given via suppository to decrease the risk of post-ERCP pancreatitis (PEP). PD was not cannulated nor injected with contrast. Impression: - The entire main bile duct was dilated, with a stone causing an obstruction. - Choledocholithiasis was found. Complete removal was accomplished by biliary sphincterotomy and balloon extraction. - A biliary sphincterotomy was performed. - The biliary tree was swept and pus was found. - One plastic stent was placed into the common bile duct. Recommendation: - [facility] to [facility] care. - Clear liquid diet today. - Monitor LFTs. - Continue IV ABx and plan to complete a 10 days course upon discharge. - Repeat ERCP in 6 weeks to remove stent. - Surgery consult to review his imaging and evaluate the need for cholecystectomy as imaging and cholangiogram showed long dilated cystic duct but no visible gallbladder. - Recall GI if needed. Graciela Muniz MD 11/06/2018 11:50:41 PM This report has been signed electronically. Note Initiated On: 11/06/2018 9:06 PM Number of Addenda: 0 I attest to the content of the Intraoperative Record and orders documented therein, exceptions below {[id number]}
--- NOTE | 2018-11-07 00:09 | Anesthesiology Progress Note ---
Date of Service November 07, 2018 Anesthesia Post Procedure Vital Signs Vital Signs: Temp Pulse Pulse Resp BP BP Pulse Ox 11/07/18 00:00 76 16 142/98 H 96 11/06/18 23:50 69 19 117/71 96 11/06/18 23:40 37.2 C 82 18 134/80 98 11/06/18 20:30 36.9 C 112 H 20 127/74 95 11/06/18 20:15 115 H 21 126/77 91 11/06/18 19:31 115 H 21 126/77 91 11/06/18 19:07 122 H 18 96/85 L 90 11/06/18 18:31 116 H 21 109/84 91 11/06/18 16:44 98 H 18 94 11/06/18 16:31 105 H 32 H 102/91 97 11/06/18 16:15 94 H 18 137/77 94 11/06/18 14:30 36.4 C L 98 H 18 105/69 98 Pain Intensity Abdomen: Pain Intensity: 5 Notes Mental Status: alert / awake / arousable and participated in evaluation Patient Amnestic to Procedure: Yes Nausea / Vomiting: adequately controlled Pain: adequately controlled Airway Patency, RR, SpO2: stable & adequate BP & HR: stable & adequate Hydration State: stable & adequate Anesthetic Complications: no major complications apparent
[2018-11-07] MEDS: SODIUM CHLORIDE 0.9% 1000ML 1,000 ML IV SCH ×2 (00:45→08:09)
[2018-11-07] MEDS: PIPERACILLIN/TAZOBACTAM 3.375 GM in DEXTROSE 5% 100 ML IV SCH ×4 (00:45→23:42)
--- NOTE | 2018-11-07 06:25 | Fluoroscopy Report ---
[place] ERCP biliary ductal HISTORY: 73 years-old Male ERCP choledocholithiasis. COMPARISON: MRCP and CT abdomen and pelvis of same day TECHNIQUE: 8 spot fluoroscopic images of the abdominal right upper quadrant were obtained utilizing 9 2.4 seconds fluoroscopy time FINDINGS: Endoscope is noted within the duodenum. Cannulation of the common bile duct. Contrast opacification o f the intrahepatic and extrahepatic biliary tree demonstrates moderate to severe dilation. Several fi lling defects are noted about the common bile duct suggestive of choledocholithiasis. Opacified cysti c duct without gallbladder identified. Subsequent images demonstrate placement of a common bile duct biliary stent. IMPRESSION: Fluoroscopic assistance as above. Please see procedural report for further details. The above report was generated using voice recognition software. It may contain grammatical, syntax o r spelling errors. Electronically signed by: Terence David M.D. 11/07/2018 6:24 AM
[2018-11-07 07:25] LABS: Hematocrit (blood only) 37.3 % (42-52); Hemoglobin 12.6 g/dL (14.0-18.0); Mean Corpuscular Hgb Conc 33.8 g/dL (32-36); Mean Corpuscular Volume 91.4 fL (80-100); Mean Platelet Volume 9.4 fL (7.4-10.4); Platelet Count 148 K/uL (130-400); RDW Coefficient of Variation 13.5 % (11.5-14.5); RDW Standard Deviation 45.2 fL (36.4-46.3); Red Blood Count 4.08 M/uL (4.7-6.1); White Blood Count 14.24 K/uL (4.8-10.8)
[2018-11-07 07:54] LABS: Estimated Average Glucose 123 mg/dl
[2018-11-07 07:59] LABS: Echinocytes 1+; Immature Granulocytes # (auto) 0.03 K/uL (0.00-0.02); Immature Granulocytes % (auto) 0.2 %; Lymphocytes # (auto) 0.69 K/uL (1.2-3.4); Lymphocytes % (auto) 4.8 %; Monocytes # (auto) 0.28 K/uL (0.11-0.59); Neutrophils # (auto) 13.24 K/uL (1.4-6.5)
[2018-11-07 08:04] LABS: Albumin Globulin Ratio 0.8 (0.9-2); Albumin Level 2.6 gm/dl (3.4-5.0); BUN Creatinine Ratio 17.3 (10-20); Bilirubin,Total 3.3 mg/dl (0.2-1); Creatinine Clr Calc Pharmacy 34.5 ml/min; Est GFR (African American) 51.2; Est GFR (Non-African American) 44.2; Globulin 3.2 gm/dl (2.5-4.0); Potassium 4.7 mmol/L (3.5-5.1); Total Protein 5.8 gm/dl (6.4-8.2)
--- NOTE | 2018-11-07 10:41 | Gastroenterology Progress Note ---
Date of Service November 07, 2018 Assessment & Plan (1) Ascending cholangitis: Patient presented with right upper quadrant abdominal pain with ascending cholangitis due to choledocholithiasis, Doing well after ERCP with little relief of his obstruction, he has no complaints of the abdominal pain and his vital signs are stable. His blood cultures now come back positive for gram-negative rods. Continue IV fluids and antibiotics as ordered. Continue supportive care. Can to new liquid diet and advance as tolerated. Prior to discharge will need discussion with general surgery to review films as patient denies cholecystectomy however on multiple repeated images there is no evidence of a gallbladder present. Subjective Patient doing well post ERCP, had a presentation with abdominal pain and symptoms consistent with ascending cholangitis. He now has blood cultures positive for gram-negative rods Gastrointestinal: as per Subjective / HPI Physical Exam 2 Vital Signs (Past 24 Hours): Last Vital Signs Temp 36.6 C 11/07/18 07:01 Pulse 68 11/07/18 07:01 Resp 18 11/07/18 07:01 BP 111/69 11/07/18 07:01 Pulse Ox 95 11/07/18 07:01 Constitutional: + well hydrated, cooperative and comfortable Eyes: PERRL, conjunctivae normal, anicteric sclerae ENMT: external ear and nose normal, oropharynx normal Neck: normal visual inspection and trachea midline Respiratory: normal respiratory effort, lungs clear to auscultation Auscultation: no wheezes Cardiovascular: RRR, no murmur, no edema Gastrointestinal (Abdomen): normal bowel sounds, soft, nontender, no hepatosplenomegaly Musculoskeletal: no cyanosis or clubbing, extremities motor strength 5/5 Skin: no rashes, warm and dry Neurologic: awake; no focal motor deficits Motor/Sensory: no tremor
--- NOTE | 2018-11-07 18:07 | Hospitalist Progress Note ---
Date of Service November 07, 2018 Assessment & Plan (1) Sepsis: Met criteria for sepsis per current CMS guidelines. Sepsis secondary to ascending cholangitis. Blood cultures obtained. Received broad-spectrum antibiotics. Hemodynamically stable. Blood cultures growing gram negative rods. Continue piperacillin / tazobactam. (2) Ascending cholangitis: Presented with sepsis and elevated LFT's. GI consulted. ERCP with biliary tract stent performed. Antibiotic management as discussed above. (3) DVT prophylaxis: SCD's. Ambulate. (4) Discharge planning issues: Anticipated discharge to home. Family Medicine follow-up with Dr. Eduarda Kebede. Subjective Recheck for sepsis and other problems. Pt seen in his room round 1800. Admitted last evening with sepsis attributed to cholangitis. ERCP with biliary stent placmement performed during the night. Feels much better today. No fever. No abdominal pain, nausea, vomiting. No chest pain. No cough or SOB. Urine dark. Physical Exam 2 Vital Signs (Past 24 Hours): Last Vital Signs Temp 36.7 C 11/07/18 15:36 Pulse 73 11/07/18 15:36 Resp 16 11/07/18 15:36 BP 107/66 11/07/18 15:36 Pulse Ox 94 11/07/18 15:36 Constitutional: no acute distress Eyes: + scleral abnormality (icteric) Respiratory: no respiratory distress Auscultation: lungs clear to auscultation bilaterally Cardiovascular: Rate/Rhythm: regular rate and regular rhythm Heart Sounds: no gallop, no murmur and no cardiac rub Vessels: no JVD Extremities: no calf tenderness and no edema Gastrointestinal (Abdomen): normal bowel sounds, soft, nontender, no hepatosplenomegaly Skin: no rashes, warm and dry Psychiatric: Orientation: alert and oriented x 3 Results & Data Laboratory Results Laboratory Results - last 24 hr 11/06/18 11/07/18 11/07/18 19:30 07:12 07:12 WBC 14.24 H RBC 4.08 L Hgb 12.6 L Hct 37.3 L MCV 91.4 MCH 30.9 MCHC 33.8 RDW Std Deviation 45.2 RDW Coeff of Kevin 13.5 Plt Count 148 MPV 9.4 Immature Gran % (Auto) 0.2 Neut % (Auto) 93.0 Lymph % (Auto) 4.8 [place] % (Auto) 2.0 Eos % (Auto) 0.0 Baso % (Auto) 0.0 Immature Gran # (Auto) 0.03 H Neut # (Auto) 13.24 H Lymph # (Auto) 0.69 L [place] # (Auto) 0.28 Eos # (Auto) 0.00 Baso # (Auto) 0.00 Echinocytes 1+ Sodium Potassium Chloride Carbon Dioxide Anion Gap BUN Creatinine Est Cr Clr Drug Dosing Est GFR ( Amer) Est GFR (Non-Af Amer) BUN/Creatinine Ratio Glucose Estimat Average Glucose Hemoglobin A1c Lactate 2.1 H* Calcium Total Bilirubin AST ALT Alkaline Phosphatase Total Protein Albumin Globulin Albumin/Globulin Ratio Urine Color Dark Yellow Urine Appearance Clear Urine pH 5.0 Ur Specific [place] > 1.045 H Urine Protein Negative Urine Glucose (UA) Negative Urine Ketones Trace H Urine Blood Negative Urine Nitrite Negative Urine Bilirubin Negative Urine Urobilinogen Negative Ur Leukocyte Esterase Negative 11/07/18 11/07/18 07:12 07:12 WBC RBC Hgb Hct MCV MCH MCHC RDW Std Deviation RDW Coeff of Kevin Plt Count MPV Immature Gran % (Auto) Neut % (Auto) Lymph % (Auto) [place] % (Auto) Eos % (Auto) Baso % (Auto) Immature Gran # (Auto) Neut # (Auto) Lymph # (Auto) [place] # (Auto) Eos # (Auto) Baso # (Auto) Echinocytes Sodium 137 Potassium 4.7 Chloride 107 Carbon Dioxide 20 L Anion Gap 10.0 BUN 26 H Creatinine 1.52 H Est Cr Clr Drug Dosing 34.5 Est GFR ( Amer) 51.2 Est GFR (Non-Af Amer) 44.2 BUN/Creatinine Ratio 17.3 Glucose 146 H Estimat Average Glucose 123 Hemoglobin A1c 5.9 H Lactate Calcium 8.0 L D Total Bilirubin 3.3 H AST 170 H ALT 178 H Alkaline Phosphatase 146 H Total Protein 5.8 L D Albumin 2.6 L Globulin 3.2 Albumin/Globulin Ratio 0.8 L Urine Color Urine Appearance Urine pH Ur Specific [place] Urine Protein Urine Glucose (UA) Urine Ketones Urine Blood Urine Nitrite Urine Bilirubin Urine Urobilinogen Ur Leukocyte Esterase Microbiology 11/06/18 18:58 Blood Blood Culture - Preliminary Gram negative bacilli 11/06/18 18:52 Blood Blood Culture - Preliminary Gram negative bacilli _ (1) Sepsis Sepsis type: sepsis due to unspecified organism Qualified Code(s): A41.9 - Sepsis, unspecified organism
[2018-11-08 07:46] LABS: Hemoglobin 12.3 g/dL (14.0-18.0); Mean Corpuscular Hgb Conc 34.2 g/dL (32-36); Mean Corpuscular Volume 90.9 fL (80-100); Mean Platelet Volume 10.1 fL (7.4-10.4); Platelet Count 173 K/uL (130-400); RDW Coefficient of Variation 13.8 % (11.5-14.5); Red Blood Count 3.96 M/uL (4.7-6.1); White Blood Count 10.04 K/uL (4.8-10.8)
[2018-11-08] MEDS: PIPERACILLIN/TAZOBACTAM 3.375 GM in DEXTROSE 5% 100 ML IV SCH ×3 (07:49→23:49)
[2018-11-08 08:11] LABS: Albumin Globulin Ratio 0.8 (0.9-2); Albumin Level 2.5 gm/dl (3.4-5.0); BUN Creatinine Ratio 17.4 (10-20); Bilirubin Direct 0.5 mg/dl (0-0.2); Bilirubin,Total 0.9 mg/dl (0.2-1); Calcium 8.1 mg/dl (8.5-10.1); Creatinine Clr Calc Pharmacy 40.3 ml/min; Est GFR (African American) 58.1; Est GFR (Non-African American) 50.1; Globulin 3.3 gm/dl (2.5-4.0); Potassium 3.9 mmol/L (3.5-5.1); Total Protein 5.8 gm/dl (6.4-8.2)
--- NOTE | 2018-11-08 08:46 | Gastroenterology Progress Note ---
Date of Service November 08, 2018 Assessment & Plan (1) Ascending cholangitis: Patient presented with right upper quadrant abdominal pain with ascending cholangitis due to choledocholithiasis, Doing well after ERCP with little relief of his obstruction, he has no complaints of the abdominal pain and his vital signs are stable. His blood cultures now come back positive for gram-negative rods (Bacilli) with sensitivities to follow. Continue IV fluids and antibiotics as ordered. Continue supportive care. Can advance diet as tolerated. Dscussion with general surgery was done this morn, no evidence of GB, would plan that if has cholangiogram at time of stent removal then may need EUS if any question if GB is present afterwards. Subjective Patient doing well post ERCP, had a presentation with abdominal pain and symptoms consistent with ascending cholangitis. He now has blood cultures positive for gram-negative rods Gastrointestinal: as per Subjective / HPI Physical Exam 2 Vital Signs (Past 24 Hours): Last Vital Signs Temp 36.4 C L 11/08/18 06:59 Pulse 61 11/08/18 06:59 Resp 16 11/08/18 06:59 BP 120/74 11/08/18 06:59 Pulse Ox 93 11/08/18 06:59 Constitutional: + well hydrated, cooperative and comfortable Eyes: PERRL, conjunctivae normal, anicteric sclerae ENMT: external ear and nose normal, oropharynx normal Neck: normal visual inspection and trachea midline Respiratory: normal respiratory effort, lungs clear to auscultation Auscultation: no wheezes Cardiovascular: RRR, no murmur, no edema Gastrointestinal (Abdomen): normal bowel sounds, soft, nontender, no hepatosplenomegaly Musculoskeletal: no cyanosis or clubbing, extremities motor strength 5/5 Skin: no rashes, warm and dry Neurologic: awake; no focal motor deficits Motor/Sensory: no tremor
--- NOTE | 2018-11-08 09:21 | Hospitalist Progress Note ---
Date of Service November 08, 2018 Assessment & Plan (1) Sepsis: Met criteria for sepsis per current CMS guidelines. Sepsis secondary to ascending cholangitis. Blood cultures obtained. Received broad-spectrum antibiotics. Hemodynamically stable. Blood cultures growing gram negative rods, ID pending. Continue piperacillin / tazobactam. (2) Ascending cholangitis: Presented with sepsis and elevated LFT's. GI consulted. ERCP with biliary tract stent performed. Antibiotic management as discussed above. (3) Cough: Afebrile. Check chest x-ray. (4) DVT prophylaxis: SCD's. Ambulate. (5) Discharge planning issues: Anticipated discharge to home. Family Medicine follow-up with Dr. Eduarda Kebede. Subjective Recheck for sepsis and other problems. Pt seen in his room round [id number]. Feels much better today. No fever. No abdominal pain, nausea, vomiting. No chest pain. Occasional cough, no SOB. No chest pain. No urinary symptoms. Physical Exam 2 Vital Signs (Past 24 Hours): Last Vital Signs Temp 36.4 C L 11/08/18 06:59 Pulse 61 11/08/18 06:59 Resp 16 11/08/18 06:59 BP 120/74 11/08/18 06:59 Pulse Ox 93 11/08/18 08:00 Constitutional: no acute distress Eyes: + scleral abnormality (icteric) Respiratory: no respiratory distress Auscultation: + rhonchi (few scattered rhonchi) Cardiovascular: Rate/Rhythm: regular rate and regular rhythm Heart Sounds: no gallop, no murmur and no cardiac rub Vessels: no JVD Extremities: no calf tenderness and no edema Gastrointestinal (Abdomen): normal bowel sounds, soft, nontender, no hepatosplenomegaly Skin: no rashes, warm and dry Psychiatric: Orientation: alert and oriented x 3 _ (1) Sepsis Sepsis type: sepsis due to unspecified organism Qualified Code(s): A41.9 - Sepsis, unspecified organism
--- NOTE | 2018-11-08 10:44 | XRay Report ---
XR chest 2V routine CLINICAL HISTORY: 73 years-old Male presenting with SOB. TECHNIQUE: Portable upright AP view of the chest was obtained. COMPARISON: 11/06/2018. FINDINGS: Atherosclerosis of the aortic arch. Cardiac silhouette normal in size. Coarsened lung markings. Bibas ilar opacities stable to worsened from prior. No large pleural effusion. Possible left pleural thicke sarah beth versus trace fluid. No pneumothorax. Dextroscoliosis of the thoracic spine with multilevel degen erative changes. Partially visualized biliary stent. IMPRESSION: 1. Persistent bibasilar opacities, stable to worsened from prior. Findings could represent extensive atelectasis or aspiration. This may be on a background of chronic lung disease. Electronically signed by: Myles Marie M.D. 11/08/2018 10:43 AM
[2018-11-09 06:24] LABS: Hematocrit (blood only) 37.6 % (42-52); Hemoglobin 12.7 g/dL (14.0-18.0); Mean Corpuscular Hgb Conc 33.8 g/dL (32-36); Mean Corpuscular Volume 90.8 fL (80-100); Mean Platelet Volume 9.8 fL (7.4-10.4); Platelet Count 176 K/uL (130-400); RDW Coefficient of Variation 13.5 % (11.5-14.5); RDW Standard Deviation 45.3 fL (36.4-46.3); Red Blood Count 4.14 M/uL (4.7-6.1); White Blood Count 8.31 K/uL (4.8-10.8)
[2018-11-09 07:04] LABS: Albumin Level 2.6 gm/dl (3.4-5.0); BUN Creatinine Ratio 14.9 (10-20); Bilirubin Direct 0.4 mg/dl (0-0.2); Calcium 8.2 mg/dl (8.5-10.1); Creatinine Clr Calc Pharmacy 42.6 ml/min; Est GFR (African American) 60.2; Est GFR (Non-African American) 51.9; Potassium 3.9 mmol/L (3.5-5.1)
[2018-11-09 07:07] LABS: Albumin Globulin Ratio 0.7 (0.9-2); Bilirubin,Total 0.8 mg/dl (0.2-1); Globulin 3.5 gm/dl (2.5-4.0); Total Protein 6.1 gm/dl (6.4-8.2)
[2018-11-09] MEDS: PIPERACILLIN/TAZOBACTAM 3.375 GM in DEXTROSE 5% 100 ML IV SCH ×3 (07:41→23:47)
--- NOTE | 2018-11-09 09:39 | Gastroenterology Progress Note ---
Date of Service November 09, 2018 Assessment & Plan (1) Ascending cholangitis: 73 year old male w/ right upper quadrant abdominal pain with ascending cholangitis due to choledocholithiasis now S/P ERCP w/ resoltuion of symptoms, LFTs trending down - Continue IV ABX while admitted then PO to complete a 10 days course - Repeat ERCP in 6 weeks to remove stent. - GI sign off. Thank you for allowing us to participate in the care of this patient. Please call with any acute changes, questions or concerns. Please see addendum below with additional recommendation from my supervising physician. Present on Admission?: Yes Supervising Physician Co-Signing Physician Notes I performed a history and physical examination of the patient, including specifically on physical exam - soft, nontender abdomen. I have discussed the patient's management with Cristien. Please refer to the nurse practitioner's note for the documented findings and plan of care. Cholangitis resolved. Continue ABx for total of 14 days due to bactiremia. Repeat ERCP in 4-6 weeks to remove the stent. Subjective Pt was seen and evaluated, chart reviewed. S/P ERCP. No acute complaints. Feels well. Has been tolerating PO. No nausea, vomiting. Moving bowels. No abd pain. No black/bloody stools. ERCP: The entire main bile duct was dilated, with a stone causing an obstruction.Choledocholithiasis was found. Complete removal was accomplished by biliary sphincterotomy and balloon extraction.A biliary sphincterotomy was performed.The biliary tree was swept and pus was found.One plastic stent was placed into the common bile duct. Constitutional: no fever and no chills Respiratory: no cough and no chest congestion Cardiovascular: no chest pain and no chest pain at rest Gastrointestinal: no abdominal pain and no belching Physical Exam 2 Vital Signs (Past 24 Hours): Last Vital Signs Temp 36.3 C L 11/09/18 06:49 Pulse 67 11/09/18 08:00 Resp 18 11/09/18 06:49 BP 151/88 H 11/09/18 06:49 Pulse Ox 93 11/09/18 06:49 Constitutional: well nourished; no acute distress Respiratory: normal respiratory effort, lungs clear to auscultation Cardiovascular: RRR, no murmur, no edema Gastrointestinal (Abdomen): normal bowel sounds, soft, nontender, no hepatosplenomegaly Skin: no rashes, warm and dry Results & Data Laboratory Results 11/09/18 11/09/18 11/09/18 Range/Units 05:44 05:44 05:44 WBC 8.31 (4.8-10.8) K/uL RBC 4.14 L (4.7-6.1) M/uL Hgb 12.7 L (14.0-18.0) g/dL Hct 37.6 L (42-52) % MCV 90.8 (80-100) fL MCH 30.7 (25-34) pg MCHC 33.8 (32-36) g/dL RDW Std Deviation 45.3 (36.4-46.3) fL RDW Coeff of Kevin 13.5 (11.5-14.5) % Plt Count 176 (130-400) K/uL MPV 9.8 (7.4-10.4) fL Sodium 137 (136-145) mmol/L Potassium 3.9 (3.5-5.1) mmol/L Chloride 108 H (98-107) mmol/L Carbon Dioxide 23 (21-32) mmol/L Anion Gap 6.0 (3-11) BUN 20 H (7-18) mg/dl Creatinine 1.33 (0.6-1.4) mg/dl Est Cr Clr Drug Dosing 42.6 ml/min Est GFR ( Amer) 60.2 Est GFR (Non-Af Amer) 51.9 BUN/Creatinine Ratio 14.9 (10-20) Glucose 81 (70-99) mg/dl Calcium 8.2 L (8.5-10.1) mg/dl Total Bilirubin 0.8 (0.2-1) mg/dl Direct Bilirubin 0.4 H (0-0.2) mg/dl AST 41 H (15-37) U/L ALT 77 (12-78) U/L Alkaline Phosphatase 116 (45-117) U/L Total Protein 6.1 L (6.4-8.2) gm/dl Albumin 2.6 L (3.4-5.0) gm/dl Globulin 3.5 (2.5-4.0) gm/dl Albumin/Globulin Ratio 0.7 L (0.9-2) Procalcitonin 25.93 H (0-0.5) ng/ml
--- NOTE | 2018-11-09 15:11 | Hospitalist Progress Note ---
Date of Service November 09, 2018 Assessment & Plan (1) Sepsis: Met criteria for sepsis per current CMS guidelines. Sepsis secondary to ascending cholangitis. Blood cultures obtained. Received broad-spectrum antibiotics. Hemodynamically stable. Blood cultures growing gram negative rods = E coli. Procalcitonin still elevated. Continue piperacillin / tazobactam. (2) Ascending cholangitis: Presented with sepsis and elevated LFT's. GI consulted. ERCP with biliary tract stent performed. Antibiotic management as discussed above to complete 14 days of therapy. Repeat ERCP with stent removal in 4-6 weeks. (3) Aspiration pneumonia: Intermittent cough. Imaging at time of admission demonstrated bibasilar infiltrates. Suspect aspiration pneumonia. Receiving antibiotics as discussed above. (4) DVT prophylaxis: SCD's. Ambulate. (5) Discharge planning issues: Anticipated discharge to home. Family Medicine follow-up with Dr. Eduarda Kebede. Subjective Recheck for sepsis and other problems. Pt seen in his room round 1430. Better. Still coughing. No fever. No abdominal pain, nausea, vomiting. No chest pain. No chest pain. No urinary symptoms. Physical Exam 2 Vital Signs (Past 24 Hours): Last Vital Signs Temp 36.4 C L 11/09/18 14:56 Pulse 73 11/09/18 14:56 Resp 16 11/09/18 14:56 BP 158/94 H 11/09/18 14:56 Pulse Ox 97 11/09/18 11:38 Constitutional: no acute distress Respiratory: no respiratory distress Auscultation: lungs clear to auscultation bilaterally, + rhonchi (few scattered rhonchi) and + wheezes ( diffuse, mild) Cardiovascular: Rate/Rhythm: regular rate and regular rhythm Heart Sounds: no gallop, no murmur and no cardiac rub Vessels: no JVD Extremities: no calf tenderness and no edema Gastrointestinal (Abdomen): normal bowel sounds, soft, nontender, no hepatosplenomegaly Skin: no rashes, warm and dry Psychiatric: Orientation: alert and oriented x 3 Results & Data Laboratory Results Laboratory Results - last 24 hr 11/09/18 11/09/18 11/09/18 05:44 05:44 05:44 WBC 8.31 RBC 4.14 L Hgb 12.7 L Hct 37.6 L MCV 90.8 MCH 30.7 MCHC 33.8 RDW Std Deviation 45.3 RDW Coeff of Kevin 13.5 Plt Count 176 MPV 9.8 Sodium 137 Potassium 3.9 Chloride 108 H Carbon Dioxide 23 Anion Gap 6.0 BUN 20 H Creatinine 1.33 Est Cr Clr Drug Dosing 42.6 Est GFR ( Amer) 60.2 Est GFR (Non-Af Amer) 51.9 BUN/Creatinine Ratio 14.9 Glucose 81 Calcium 8.2 L Total Bilirubin 0.8 Direct Bilirubin 0.4 H AST 41 H ALT 77 Alkaline Phosphatase 116 Total Protein 6.1 L Albumin 2.6 L Globulin 3.5 Albumin/Globulin Ratio 0.7 L Procalcitonin 25.93 H _ (1) Sepsis Sepsis type: sepsis due to unspecified organism Qualified Code(s): A41.9 - Sepsis, unspecified organism
[2018-11-10 07:48] LABS: Hematocrit (blood only) 41.2 % (42-52); Hemoglobin 14.2 g/dL (14.0-18.0); Mean Corpuscular Hgb Conc 34.5 g/dL (32-36); Mean Platelet Volume 9.5 fL (7.4-10.4); Platelet Count 191 K/uL (130-400); RDW Coefficient of Variation 13.4 % (11.5-14.5); Red Blood Count 4.58 M/uL (4.7-6.1); White Blood Count 5.64 K/uL (4.8-10.8)
[2018-11-10 08:22] LABS: Albumin Level 2.7 gm/dl (3.4-5.0); BUN Creatinine Ratio 14.6 (10-20); Bilirubin Direct 0.4 mg/dl (0-0.2); Calcium 8.7 mg/dl (8.5-10.1); Creatinine Clr Calc Pharmacy 52.4 ml/min; Est GFR (African American) 77.4; Est GFR (Non-African American) 66.8; Potassium 3.7 mmol/L (3.5-5.1)
[2018-11-10] MEDS: PIPERACILLIN/TAZOBACTAM 3.375 GM in DEXTROSE 5% 100 ML IV SCH (08:23)
[2018-11-10 08:25] LABS: Albumin Globulin Ratio 0.7 (0.9-2); Bilirubin,Total 0.9 mg/dl (0.2-1); Globulin 3.6 gm/dl (2.5-4.0); Total Protein 6.3 gm/dl (6.4-8.2)
--- NOTE | 2018-11-10 10:37 | Hospitalist Progress Note ---
Date of Service November 10, 2018 Assessment & Plan (1) Sepsis: Met criteria for sepsis per current CMS guidelines. Sepsis secondary to ascending cholangitis. Blood cultures obtained. Received broad-spectrum antibiotics. Hemodynamically stable. Blood cultures grew gram negative rods = E coli. Procalcitonin elevated. Received piperacillin / tazobactam, then transitioned to oral therapy with amoxicillin / clavulanic acid to complete 14 days of treatment. (2) Ascending cholangitis: Presented with sepsis and elevated LFT's. GI consulted. ERCP with biliary tract stent performed. Antibiotic management as discussed above to complete 14 days of therapy. Repeat ERCP with stent removal in 4-6 weeks. (3) Aspiration pneumonia: Intermittent cough. Imaging at time of admission demonstrated bibasilar infiltrates. Suspect aspiration pneumonia. Receiving antibiotics as discussed above. (4) DVT prophylaxis: SCD's. Ambulating. (5) Discharge planning issues: Discharge to home. Family Medicine follow-up with Dr. Eduarda Kebede. Follow-up with GI. Subjective Recheck for sepsis and other problems. Doing well. Cough improved. No fever. No abdominal pain, nausea, vomiting. No chest pain. No urinary symptoms. Physical Exam 2 Vital Signs (Past 24 Hours): Last Vital Signs Temp 36.5 C 11/10/18 07:26 Pulse 67 11/10/18 07:26 Resp 18 11/10/18 07:26 BP 135/83 11/10/18 07:26 Pulse Ox 93 11/09/18 22:11 Constitutional: no acute distress Eyes: + scleral abnormality (icteric) Respiratory: no respiratory distress Auscultation: + wheezes (diffuse, mild ) Cardiovascular: Rate/Rhythm: regular rate and regular rhythm Heart Sounds: no gallop, no murmur and no cardiac rub Vessels: no JVD Extremities: no calf tenderness and no edema Gastrointestinal (Abdomen): normal bowel sounds, soft, nontender, no hepatosplenomegaly Skin: no rashes, warm and dry Psychiatric: Orientation: alert and oriented x 3 _ (1) Sepsis Sepsis type: sepsis due to unspecified organism Qualified Code(s): A41.9 - Sepsis, unspecified organism
--- NOTE | 2018-11-17 08:50 | Discharge Summary ---
Date of Service November 17, 2018 Admission HPI Per Admitting Provider This is a 73 year old male without significant PMH other than stated below who presents to [facility] ED secondary to abdominal pain x 2 days. Son is at bedside. Pain located RLQ, nonradiating, constant, was 9/10, currently 0/10 after morphine, nothing makes better or worse, poor appetite, associated with emesis x 5 today and nausea. Never had anything like in past. Tried APAP with out relief. Hx of hernia repair in past; otherwise no abdominal surgeries per pt history. Denies f/c/s, lightheaded, dizziness, syncope, chest pain, sob, diarrhea, dysuria, hematuria, hemetemesis, hemoptysis, URI sx, melena, hematochezia. He does illicit to difficulty taking a deep breath due to abdominal pain. Reports 10lb weight lost past 2-3 months due to poor appetite. States he walks anywhere from 2-5miles daily at 7:30am, "I just have to keep moving." Admission Exam Per Admitting Provider Gen: WD/WN, M/F, NAD, sitting up in bed, pleasant, conversing easily Head: Normocephalic, Atraumatic Eyes: Sclera normal, no conjunctival injection, PERRLA, EOMI ENT: Gross hearing intact, normal pharynx, mucous membranes moist Neck: supple, no adenopathy, No JVD, no bruit, Resp: Clear to auscultation b/l, no wheeze, rales, rhonchi. Normal insp/exp effort, no accessory muscle use CV: Regular rate, regular rhythm, no murmur, rub, gallop, or ectopy Abd: +BS x 4, soft, nontender, nondistended Musculoskeletal: moves extremities active rom x 4, strength intact, good ethnographic materials conservator strength Extremities: No edema bilaterally Skin: warm, moist, no rash, negative turgor, cap refill < 2sec Neuro: Alert and oriented x 3, speech normal, good mood/affect, cran nerve 2-12 intact grossly : deferred Principal Diagnosis ascending cholangitis sepsis aspiration pneumonia Discharge Data Allergies Allergy/AdvReac Type Severity Reaction Status Date / Time No Known Allergies Allergy Unverified 11/06/18 17:30 Consultations 11/06/18 18:28 ED Decision to Admit Stat 11/06/18 19:37 Consult Gastroenterology Routine 11/06/18 20:38 Consult Case Management - Discharge Planning Routine Procedures Performed Operation Date: 11/06/18 21:30 Actual Procedures p Endoscopic Retrograde Cholangiopancreatography(Not Applicable) - Graciela Muniz MD Operation Date: 11/07/18 07:30 <No data on this case meets the specified criteria> Ordered Studies 11/06/18 [place] ERCP biliary ductal Routine 11/06/18 16:33 CT abd pelvis IV con only Stat 11/06/18 18:37 MR MRCP Stat Hospital Course (1) Sepsis: Met criteria for sepsis per current CMS guidelines. Sepsis secondary to ascending cholangitis. Blood cultures obtained. Received broad-spectrum antibiotics. Hemodynamically stable. Blood cultures grew gram negative rods = E coli. Procalcitonin elevated. Received piperacillin / tazobactam, then transitioned to oral therapy with amoxicillin / clavulanic acid to complete 14 days of treatment. (2) Ascending cholangitis: Presented with sepsis and elevated LFT's. GI consulted. ERCP with biliary tract stent performed. Antibiotic management as discussed above to complete 14 days of therapy. Repeat ERCP with stent removal in 4-6 weeks. (3) Aspiration pneumonia: Intermittent cough. Imaging at time of admission demonstrated bibasilar infiltrates. Suspect aspiration pneumonia. Receiving antibiotics as discussed above. (4) DVT prophylaxis: SCD's. Ambulating. (5) Discharge planning issues: Discharge to home. Family Medicine follow-up with Dr. Eduarda Kebede. GI follow-up with Dr. Muniz. Total Time Total Time Spent Total Time Spent (In Minutes): 40 Discharge Plan Discharge Items Patient Disposition: Home - Self-Care Reason For Visit: blocked and infected bile duct Discharge Diagnosis: blocked and infected bile duct possible pneumonia Condition: Good Discharge Goals: Decrease discomfort and Improve disease control Activity: Resume your previous activity Non-emergency contact: Primary Care Provider, Hospitalist and Behavioral Health Technician Call non-emergency contact if: you have any medication questions and your symptoms worsen Follow-up/Referrals: Eduarda Kebede DO [Primary Care Provider] - (11/17/2018 1:00 PM Giovanna Holcomb DO [facility]) Graciela Muniz MD [Hospitalist] - (Office will contact you for appointment to have bile duct stent removed.) Diet: Heart Healthy Addtl Provider Instructions: Bile stent should be removed in about 6 weeks. Office will contact you with appointment. Please have Dr. Holcomb order repeat chest x-ray for you to be done in about 1 month to make certain that everything gets better. CT scan showed that you have an enlarged prostate. Please discuss care of your prostate with Dr. Holcomb. OTHER INSTRUCTIONS: Seek medical attention if you have: * temperature above 101 * chest pain or trouble breathing * abdominal pain, nausea, vomiting * diarrhea, dark stools or bloody stools * any unanswered questions or concerns Call 911 if symptoms are severe. Call if you have any questions or problems. My cell # is [phone]. You can also reach a [facility] hospitalist on duty at [facility] 24 hours a day by calling [phone]. Prescriptions: New amoxicillin-pot clavulanate [Augmentin] 875-125 mg tablet 1 tab PO BID Qty: 20 RF: 0 Continue aspirin 81 mg tablet,delayed release (DR/EC) 81 mg PO QAM RF: 0 acetaminophen [Tylenol Extra Strength] 500 mg Tablet 1,000 mg PO UD PRN (Reason: Pain) RF: 0 Stand-Alone Forms: My [facility] Discharge Orders: Discharge Order (Routine); Ordered 11/10/18 Ordered By: Juventino Mehta Admission Data Admit Date/Time: 11/06/18 19:37 Attending Provider: Juventino Mehta Admit Provider: Pepe Duarte Primary Care Provider: Eduarda Kebede Other Providers: Graciela Muniz Service: Medical Other Interventions: Discharge Summary Assessment (RN) Last Done: 11/10/18 10:53 DC Date/Time DO NOT enter until pt leaves facility: 11/10/18 12:58
== END 2018-11-10 12:58 | disposition home or self-care (01) | DRG 871 ==
LOC: ED 14:09 → 2S 19:37 → 4E 11-09 16:32
DX: J84.10 Pulmonary fibrosis, unspecified; Z79.82 Long term (current) use of aspirin; A41.50 Gram-negative sepsis, unspecified; K80.30 Calculus of bile duct with cholangitis, unspecified, without obstruction; Z68.20 Body mass index [BMI] 20.0-20.9, adult; N17.9 Acute kidney failure, unspecified; Z72.0 Tobacco use; R63.4 Abnormal weight loss; J69.0 Pneumonitis due to inhalation of food and vomit